=== PATIENT | female | born 1940 | race Caucasian/White ===

== ENCOUNTER 2020-07-26 18:45 | Inpatient (IN) ==
[2020-07-26] MEDS ORDERED: KETOROLAC 30 MG/1 ML VIAL IV ONE (21:37)
[2020-07-26] MEDS ORDERED: dilTIAZem Drip 125 MG/125 ML PREMIX IV SCH (22:00)
[2020-07-26] MEDS ORDERED: ONDANSETRON 4 MG/2 ML VIAL IV PRN (22:06)
[2020-07-26] MEDS ORDERED: DEXTROSE 50% 25 GM/50 ML VIAL IV PRN (22:06)
[2020-07-26] MEDS ORDERED: GLUCAGON 1 MG VIAL IM PRN (22:06)
[2020-07-26 22:09] LABS: Basophils % 0.2 % (0.0-0.8); Eosinophils % 0.1 % (0.00-10.9); Hematocrit 36.3 VOL% (35.7-47.0); Immature Granulocytes % 1.4 %; Immature Granulocytes Absolute 0.19 #; Lymphocytes # 0.9 10*3/uL (1.4-4.0); Lymphocytes % 6.6 % (21.3-54.2); Mean Corpuscular HGB Conc 33.1 GM/DL (32-36); Mean Platelet Volume 10.5 FL (9.6-12.0); Neutrophils % 79.7 % (38.7-73.9); Platelet Count 289 T/CUMM (130-400); Red Blood Count 4.08 MC/CUMM (3.8-5.5); Red Cell Distribution Width 12.6 % (9.3-17.3); White Blood Count 13.6 T/CUMM (4-12)
[2020-07-26 22:14] LABS: Bilirubin,Urine Negative (Negative); Blood, Urine Moderate mg/dL (Negative); Glucose,Urine (UA) Negative (Negative); Hyaline Casts,Urine 6 /LPF (0-3); Ketones,Urine Negative (Negative); Mucus,Urine Occasional /LPF (Occasional); Nitrite,Urine Negative (Negative); Protein,Urine 30 MG/DL; RBC,Urine 1 /HPF (0-4); Squamous Epithelial Cell,Urine Occasional /HPF (0-10); Urine Appearance CLEAR (Clear); Urine Color Yellow (Yellow); Urine Specific Gravity 1.013 (1.001-1.035); WBC,Urine 2 /HPF (0-6)
[2020-07-26] MEDS ORDERED: AMIODARONE 150 MG/3 ML VIAL ONE (22:22)
[2020-07-26] MEDS ORDERED: AMIODARONE INJ 150 MG in DEXTROSE 5% 100 ML IV ONE (22:30)
[2020-07-26] MEDS ORDERED: SODIUM CHLORIDE 0.9% 500 ML IV ONE (22:30)
[2020-07-26 22:36] LABS: Alanine Aminotransferase 36 U/L (13-56); Albumin 2.4 G/DL (3.4-5.0); Alkaline Phosphatase 118 U/L (45-117); Aspartate Amino Transferase 44 U/L (0-37); Blood Urea Nitrogen 20 MG/DL (7-18); Calcium 8.3 MG/DL (8.5-10.1); Estimated Glom Filtration Rate 42 ML/MIN; Glucose 123 MG/DL (74-106); Osmolality,Calculated 256.4 MOS/KG (273-304); Total Protein 6.6 G/DL (6.4-8.3); Troponin I 0.119 NG/ML (0.00-0.045)
[2020-07-26] MEDS ORDERED: PHENYLEPHRINE DRIP 40 MG/250 ML PREMIX IV ONE (23:21)
[2020-07-26] MEDS ORDERED: PHENYLEPHRINE DRIP 40 MG/250 ML PREMIX IV PRN (23:21)
[2020-07-27] MEDS: cefTRIAXone 1,000 MG in SYRINGE 1 EACH IV SCH ×2 (00:10→22:51)
[2020-07-27] MEDS: AZITHROMYCIN INJ 500 MG in SODIUM CHLORIDE 0.9% 250 ML IV SCH ×2 (00:10→22:52)
[2020-07-27 01:44] LABS: Basophils # 0.1 10*3/uL (0.0-0.2); Basophils % 0.3 % (0.0-0.8); Eosinophils % 0.1 % (0.00-10.9); Hematocrit 36.2 VOL% (35.7-47.0); Hemoglobin 11.9 GM/DL (12.0-16.0); Immature Granulocytes % 1.7 %; Immature Granulocytes Absolute 0.25 #; Lymphocytes % 7.1 % (21.3-54.2); Mean Corpuscular HGB Conc 32.9 GM/DL (32-36); Mean Corpuscular Volume 89.8 FL (87-102); Mean Platelet Volume 10.1 FL (9.6-12.0); Monocytes % 10.2 % (1.7-12.7); NRBC # 0.02 10*3/uL; Neutrophils % 80.6 % (38.7-73.9); Platelet Count 298 T/CUMM (130-400); Red Blood Count 4.03 MC/CUMM (3.8-5.5); Red Cell Distribution Width 12.5 % (9.3-17.3); White Blood Count 14.7 T/CUMM (4-12)
[2020-07-27 02:11] LABS: Calcium 8.4 MG/DL (8.5-10.1); Osmolality,Calculated 259.2 MOS/KG (273-304); Risk Ratio 4.05; Thyroid Stimulating Hormone 2.82 uIU/ml (0.358-3.74); VLDL CHOLESTEROL 16.2 MG/DL
[2020-07-27] MEDS: PANTOPRAZOLE 40 MG VIAL IV SCH (08:16)
[2020-07-27] MEDS: AMIODARONE 200 MG TABLET PO SCH ×2 (11:07→20:34)
[2020-07-27] MEDS: APIXABAN 2.5 MG TABLET PO SCH (20:34)
[2020-07-28 03:37] LABS: Basophils % 0.4 % (0.0-0.8); Eosinophils # 0.1 10*3/uL (0.0-0.87); Eosinophils % 1.2 % (0.00-10.9); Hematocrit 33.4 VOL% (35.7-47.0); Hemoglobin 10.8 GM/DL (12.0-16.0); Immature Granulocytes % 1.4 %; Immature Granulocytes Absolute 0.11 #; Lymphocytes # 1.2 10*3/uL (1.4-4.0); Lymphocytes % 15.4 % (21.3-54.2); Mean Corpuscular HGB Conc 32.3 GM/DL (32-36); Mean Corpuscular Volume 89.8 FL (87-102); Mean Platelet Volume 10.4 FL (9.6-12.0); Neutrophils % 65.6 % (38.7-73.9); Platelet Count 234 T/CUMM (130-400); Red Blood Count 3.72 MC/CUMM (3.8-5.5); Red Cell Distribution Width 12.7 % (9.3-17.3)
[2020-07-28 03:58] LABS: Calcium 8.3 MG/DL (8.5-10.1); Osmolality,Calculated 267.4 MOS/KG (273-304)
[2020-07-28 04:03] LABS: Band Neutrophils 1 % (0-10); Eosinophils 3 % (0-10); Hypochromasia 1+; Lymphocytes 15 % (20-55); Microcytosis Slight; Ovalocytes Slight; Platelet Estimate Adequate; Segmented Neutrophils 67 % (50-85); Total Cells Counted 100
[2020-07-28] MEDS: ATORVASTATIN 40 MG TABLET PO SCH (08:15)
[2020-07-28] MEDS: ASPIRIN EC 81 MG TABLET PO SCH (08:15)
[2020-07-28] MEDS: PANTOPRAZOLE 40 MG VIAL IV SCH (08:15)
[2020-07-28] MEDS: AMIODARONE 200 MG TABLET PO SCH ×2 (08:15→21:29)
[2020-07-28] MEDS: APIXABAN 2.5 MG TABLET PO SCH (08:15)
[2020-07-28 08:25] LABS: INR 1.1; PT Patient Result 11.4 SECS (9.8-11.9)
[2020-07-28] MEDS: FUROSEMIDE 20 MG TABLET PO SCH (12:52)
[2020-07-28] MEDS ORDERED: MAGNESIUM CITRATE 300 ML BOTTLE PO PRN (18:03)
[2020-07-28] MEDS: ACETAMINOPHEN 325 MG TABLET PO PRN (21:28)
[2020-07-28] MEDS: POLYETHYLENE GLYCOL POWDER 17 GM PACK PO SCH (21:28)
[2020-07-28] MEDS: DOCUSATE SODIUM 100 MG CAPSULE PO SCH (21:29)
[2020-07-28] MEDS: SENNA 8.6 MG TABLET PO SCH (21:29)
[2020-07-29] MEDS: cefTRIAXone 1,000 MG in SYRINGE 1 EACH IV SCH ×2 (00:02→22:10)
[2020-07-29] MEDS: AZITHROMYCIN INJ 500 MG in SODIUM CHLORIDE 0.9% 250 ML IV SCH ×2 (00:03→22:12)
[2020-07-29 06:29] LABS: Basophils # 0.1 10*3/uL (0.0-0.2); Basophils % 0.3 % (0.0-0.8); Eosinophils % 0.1 % (0.00-10.9); Hematocrit 41.3 VOL% (35.7-47.0); Hemoglobin 13.4 GM/DL (12.0-16.0); Immature Granulocytes % 0.8 %; Immature Granulocytes Absolute 0.14 #; Lymphocytes # 0.7 10*3/uL (1.4-4.0); Lymphocytes % 3.9 % (21.3-54.2); Mean Corpuscular HGB Conc 32.4 GM/DL (32-36); Mean Corpuscular Volume 90.8 FL (87-102); Mean Platelet Volume 10.1 FL (9.6-12.0); Monocytes % 11.1 % (1.7-12.7); Neutrophils % 83.8 % (38.7-73.9); Platelet Count 363 T/CUMM (130-400); Red Blood Count 4.55 MC/CUMM (3.8-5.5); Red Cell Distribution Width 12.9 % (9.3-17.3); White Blood Count 18.2 T/CUMM (4-12)
[2020-07-29 06:46] LABS: Calcium 8.8 MG/DL (8.5-10.1)
[2020-07-29 06:53] LABS: % Iron Saturation 6.2 % (18-50); Ferritin 140.6 ng/ml (8-252)
[2020-07-29 06:55] LABS: Band Neutrophils 1 % (0-10); Hypochromasia 1+; Lymphocytes 6 % (20-55); Microcytosis Slight; Nucleated Red Blood Cells 1 (0-5); Platelet Estimate Adequate; Segmented Neutrophils 88 % (50-85); Total Cells Counted 100
[2020-07-29 07:12] LABS: Folate 7.6 NG/ML (5.4-24.0); Vitamin B12 448 PG/ML (211-911)
[2020-07-29 07:50] LABS: Sedimentation Rate-Westergren 42 MM/HR (0-30)
[2020-07-29] MEDS: POLYETHYLENE GLYCOL POWDER 17 GM PACK PO SCH ×2 (08:43→20:27)
[2020-07-29] MEDS: ACETAMINOPHEN 325 MG TABLET PO PRN ×2 (08:43→18:44)
[2020-07-29] MEDS: ATORVASTATIN 40 MG TABLET PO SCH (08:43)
[2020-07-29] MEDS: FUROSEMIDE 20 MG TABLET PO SCH (08:44)
[2020-07-29] MEDS: PANTOPRAZOLE 40 MG VIAL IV SCH (08:44)
[2020-07-29] MEDS: CHOLECALCIFEROL 1,000 UNIT TABLET PO SCH (08:44)
[2020-07-29] MEDS: DOCUSATE SODIUM 100 MG CAPSULE PO SCH ×2 (08:44→20:27)
[2020-07-29] MEDS: AMIODARONE 200 MG TABLET PO SCH (08:44)
[2020-07-29] MEDS ORDERED: MAGNESIUM HYDROXIDE SUSP 30 ML UDCUP PO ONE (08:54)
[2020-07-29] MEDS: ASPIRIN EC 81 MG TABLET PO SCH (09:38)
[2020-07-29 10:35] LABS: Troponin I 0.031 NG/ML (0.00-0.045)
[2020-07-29] MEDS ORDERED: diphenhydrAMINE CAP 25 MG CAPSULE PO ONE (14:19)
[2020-07-29] MEDS ORDERED: DIAZEPAM 5 MG TABLET PO ONE (14:19)
[2020-07-29] MEDS ORDERED: AMIODARONE INJ 150 MG in DEXTROSE 5% 100 ML IV ONE (16:07)
[2020-07-29 16:25] LABS: Total Protein,Body Fluid 3.4 G/DL
[2020-07-29] MEDS: AMIODARONE INJ 450 MG in DEXTROSE 5% 241 ML IV SCH (16:40)
[2020-07-29 16:47] LABS: Lymphocytes,Pleural Fluid 24 %; Monocytes,Pleural Fluid 2 %; Neutrophils,Pleural Fluid 74 %; RBC,Pleural Fluid 145 T/CUMM
[2020-07-29] MEDS: SENNA 8.6 MG TABLET PO SCH (20:28)
[2020-07-29] MEDS: diphenhydrAMINE CAP 25 MG CAPSULE PO SCH (20:52)
[2020-07-30 05:35] LABS: Basophils # 0.1 10*3/uL (0.0-0.2); Basophils % 0.3 % (0.0-0.8); Eosinophils % 0.2 % (0.00-10.9); Hematocrit 40.1 VOL% (35.7-47.0); Immature Granulocytes % 1.3 %; Immature Granulocytes Absolute 0.24 #; Lymphocytes # 1.3 10*3/uL (1.4-4.0); Mean Corpuscular HGB Conc 32.4 GM/DL (32-36); Mean Corpuscular Volume 89.1 FL (87-102); Mean Platelet Volume 10.3 FL (9.6-12.0); Monocytes % 9.6 % (1.7-12.7); Neutrophils % 81.6 % (38.7-73.9); Platelet Count 309 T/CUMM (130-400); Red Cell Distribution Width 12.8 % (9.3-17.3); White Blood Count 18.2 T/CUMM (4-12)
[2020-07-30 05:51] LABS: Albumin 2.3 G/DL (3.4-5.0); Bilirubin,Total 0.8 MG/DL (0.2-1.0); Calcium 8.9 MG/DL (8.5-10.1); Osmolality,Calculated 269.2 MOS/KG (273-304); Total Protein 6.7 G/DL (6.4-8.3)
[2020-07-30] MEDS ORDERED: DIAZEPAM 5 MG TABLET PO ONE (08:00)
[2020-07-30] MEDS ORDERED: diphenhydrAMINE CAP 25 MG CAPSULE PO ONE (08:00)
[2020-07-30] MEDS ORDERED: SODIUM CHLORIDE 0.9% 1,000 ML IV SCH (09:00)
[2020-07-30 09:08] LABS: Hemoglobin A1 (Alkaline) 97.1 % (96.5-98.5); Hemoglobin A2 (Alkaline) 2.9 % (1.5-3.5)
[2020-07-30] MEDS: AMIODARONE INJ 450 MG in DEXTROSE 5% 241 ML IV SCH (09:14)
[2020-07-30] MEDS: FUROSEMIDE 20 MG TABLET PO SCH (09:32)
[2020-07-30] MEDS: CHOLECALCIFEROL 1,000 UNIT TABLET PO SCH (09:32)
[2020-07-30] MEDS: ASPIRIN EC 81 MG TABLET PO SCH (09:32)
[2020-07-30] MEDS: DOCUSATE SODIUM 100 MG CAPSULE PO SCH (09:33)
[2020-07-30] MEDS: AMIODARONE 200 MG TABLET PO SCH (09:33)
[2020-07-30] MEDS: PANTOPRAZOLE 40 MG VIAL IV SCH (09:33)
[2020-07-30] MEDS: ATORVASTATIN 40 MG TABLET PO SCH (09:33)
[2020-07-30] MEDS: POLYETHYLENE GLYCOL POWDER 17 GM PACK PO SCH (09:33)
[2020-07-30] MEDS: APIXABAN 2.5 MG TABLET PO SCH (09:39)
[2020-07-30] MEDS ORDERED: LIDOCAINE 1% 20 ML VIAL ONE (12:45)
[2020-07-30] MEDS ORDERED: HEPARIN/NACL 0.9% 2 UNITS/ML 1,500 ML IV ONE (12:45)
[2020-07-30] MEDS ORDERED: AMIODARONE INJ 150 MG in DEXTROSE 5% 100 ML IV ONE (12:54)
[2020-07-30] MEDS ORDERED: AMIODARONE INJ 450 MG in DEXTROSE 5% 241 ML IV SCH (13:00)
[2020-07-30] MEDS ORDERED: NOREPINEPHRINE 4 MG/4 ML VIAL IV ONE (13:55)
[2020-07-30] MEDS ORDERED: SODIUM CHLORIDE 0.9% 1,000 ML IV ONE (14:56)
[2020-07-30] MEDS ORDERED: PHENYLEPHRINE 10 MG/1 ML VIAL IV ONE (14:56)
[2020-07-30] MEDS ORDERED: LIDOCAINE 2% 5 ML VIAL ONE (14:56)
[2020-07-30] MEDS ORDERED: flumazeniL 0.5 MG/5 ML VIAL IV ONE (15:07)
[2020-07-31] MEDS: guaiFENesin/DM ER 600-30 MG TABLET PO PRN ×2 (00:28→23:30)
[2020-07-31] MEDS: AMIODARONE 200 MG TABLET PO SCH ×3 (00:28→23:30)
[2020-07-31] MEDS: cefTRIAXone 1,000 MG in SYRINGE 1 EACH IV SCH ×2 (00:28→23:30)
[2020-07-31] MEDS: SENNA 8.6 MG TABLET PO SCH ×2 (00:28→23:30)
[2020-07-31] MEDS: DOCUSATE SODIUM 100 MG CAPSULE PO SCH ×3 (00:29→23:30)
[2020-07-31] MEDS: POLYETHYLENE GLYCOL POWDER 17 GM PACK PO SCH ×3 (00:29→23:36)
[2020-07-31] MEDS: APIXABAN 2.5 MG TABLET PO SCH ×2 (00:29→10:02)
[2020-07-31] MEDS: AZITHROMYCIN INJ 500 MG in SODIUM CHLORIDE 0.9% 250 ML IV SCH (00:31)
[2020-07-31] MEDS: diphenhydrAMINE CAP 25 MG CAPSULE PO SCH ×2 (00:35→23:30)
[2020-07-31 06:38] LABS: Basophils # 0.1 10*3/uL (0.0-0.2); Basophils % 0.4 % (0.0-0.8); Eosinophils % 0.3 % (0.00-10.9); Hematocrit 36.5 VOL% (35.7-47.0); Hemoglobin 11.4 GM/DL (12.0-16.0); Immature Granulocytes % 1.7 %; Immature Granulocytes Absolute 0.22 #; Lymphocytes # 1.1 10*3/uL (1.4-4.0); Lymphocytes % 8.2 % (21.3-54.2); Mean Corpuscular HGB Conc 31.2 GM/DL (32-36); Mean Corpuscular Volume 92.6 FL (87-102); Mean Platelet Volume 9.3 FL (9.6-12.0); Monocytes % 11.8 % (1.7-12.7); Neutrophils % 77.6 % (38.7-73.9); Platelet Count 318 T/CUMM (130-400); Red Blood Count 3.94 MC/CUMM (3.8-5.5); Red Cell Distribution Width 13.1 % (9.3-17.3); White Blood Count 12.9 T/CUMM (4-12)
[2020-07-31 06:48] LABS: Alanine Aminotransferase 24 U/L (13-56); Alkaline Phosphatase 81 U/L (45-117); Aspartate Amino Transferase 24 U/L (0-37); Bilirubin,Total < 0.39 MG/DL (0.2-1.0); Blood Urea Nitrogen 19 MG/DL (7-18); Calcium 8.4 MG/DL (8.5-10.1); Estimated Glom Filtration Rate 48 ML/MIN; Glucose 76 MG/DL (74-106); Osmolality,Calculated 275.7 MOS/KG (273-304)
[2020-07-31] MEDS: AMIODARONE INJ 450 MG in DEXTROSE 5% 241 ML IV SCH ×3 (09:32→20:06)
[2020-07-31] MEDS: ASPIRIN EC 81 MG TABLET PO SCH (09:33)
[2020-07-31] MEDS: ATORVASTATIN 40 MG TABLET PO SCH (09:33)
[2020-07-31] MEDS: CHOLECALCIFEROL 1,000 UNIT TABLET PO SCH (09:33)
[2020-07-31] MEDS: FUROSEMIDE 20 MG TABLET PO SCH (09:33)
[2020-07-31] MEDS: PANTOPRAZOLE 40 MG VIAL IV SCH (09:37)
[2020-07-31] MEDS ORDERED: AMIODARONE INJ 150 MG in DEXTROSE 5% 100 ML IV ONE (11:14)
[2020-07-31] MEDS ORDERED: AMIODARONE INJ 450 MG in DEXTROSE 5% 241 ML IV SCH (11:30)
[2020-07-31] MEDS: ACETAMINOPHEN 325 MG TABLET PO PRN (11:55)
[2020-07-31] MEDS: ENOXAPARIN 60 MG/0.6 ML SYRINGE SUBCUT SCH ×2 (14:35→23:31)
[2020-07-31 18:05] LABS: Soluble Transf Receptor (sTfR) 3.9 mg/L (1.8 - 4.6)
[2020-08-01] MEDS ORDERED: DILTIAZEM 25 MG/5 ML VIAL IV ONE ×2 (05:39→10:49)
[2020-08-01] MEDS ORDERED: DIGOXIN 0.25 MG TABLET PO ONE ×2 (05:40→16:00)
[2020-08-01] MEDS: AMIODARONE 200 MG TABLET PO SCH ×3 (05:51→21:30)
[2020-08-01 06:31] LABS: Calcium 8.2 MG/DL (8.5-10.1); Osmolality,Calculated 272.1 MOS/KG (273-304)
[2020-08-01 06:34] LABS: Basophils # 0.1 10*3/uL (0.0-0.2); Basophils % 0.4 % (0.0-0.8); Eosinophils # 0.1 10*3/uL (0.0-0.87); Eosinophils % 0.4 % (0.00-10.9); Hematocrit 34.4 VOL% (35.7-47.0); Hemoglobin 10.9 GM/DL (12.0-16.0); Immature Granulocytes % 3.7 %; Immature Granulocytes Absolute 0.42 #; Lymphocytes # 1.1 10*3/uL (1.4-4.0); Lymphocytes % 9.9 % (21.3-54.2); Mean Corpuscular HGB Conc 31.7 GM/DL (32-36); Mean Corpuscular Volume 92.7 FL (87-102); Mean Platelet Volume 10.1 FL (9.6-12.0); Monocytes % 10.8 % (1.7-12.7); Neutrophils % 74.8 % (38.7-73.9); Platelet Count 345 T/CUMM (130-400); Red Blood Count 3.71 MC/CUMM (3.8-5.5); White Blood Count 11.4 T/CUMM (4-12)
[2020-08-01] MEDS: FUROSEMIDE 20 MG TABLET PO SCH (09:02)
[2020-08-01] MEDS: CHOLECALCIFEROL 1,000 UNIT TABLET PO SCH (09:02)
[2020-08-01] MEDS: DOCUSATE SODIUM 100 MG CAPSULE PO SCH ×2 (09:02→21:28)
[2020-08-01] MEDS: ATORVASTATIN 40 MG TABLET PO SCH (09:02)
[2020-08-01] MEDS: ASPIRIN EC 81 MG TABLET PO SCH (09:02)
[2020-08-01] MEDS: AMIODARONE INJ 450 MG in DEXTROSE 5% 241 ML IV SCH (09:03)
[2020-08-01] MEDS: POLYETHYLENE GLYCOL POWDER 17 GM PACK PO SCH ×3 (09:03→21:36)
[2020-08-01] MEDS: ENOXAPARIN 60 MG/0.6 ML SYRINGE SUBCUT SCH ×2 (09:07→21:31)
[2020-08-01] MEDS: PANTOPRAZOLE 40 MG VIAL IV SCH (09:08)
[2020-08-01] MEDS: SENNA 8.6 MG TABLET PO SCH (21:28)
[2020-08-01] MEDS: diphenhydrAMINE CAP 25 MG CAPSULE PO SCH (21:28)
[2020-08-01] MEDS: cefTRIAXone 1,000 MG in SYRINGE 1 EACH IV SCH (21:31)
[2020-08-02 06:14] LABS: Basophils # 0.1 10*3/uL (0.0-0.2); Basophils % 0.9 % (0.0-0.8); Eosinophils # 0.1 10*3/uL (0.0-0.87); Eosinophils % 0.5 % (0.00-10.9); Hematocrit 35.4 VOL% (35.7-47.0); Hemoglobin 11.2 GM/DL (12.0-16.0); Immature Granulocytes % 4.4 %; Lymphocytes # 1.1 10*3/uL (1.4-4.0); Lymphocytes % 11.9 % (21.3-54.2); Mean Corpuscular HGB Conc 31.6 GM/DL (32-36); Mean Corpuscular Volume 90.8 FL (87-102); Mean Platelet Volume 9.8 FL (9.6-12.0); Monocytes % 11.6 % (1.7-12.7); Neutrophils % 70.7 % (38.7-73.9); Platelet Count 328 T/CUMM (130-400); White Blood Count 9.2 T/CUMM (4-12)
[2020-08-02 06:27] LABS: Calcium 8.5 MG/DL (8.5-10.1); Osmolality,Calculated 273.8 MOS/KG (273-304)
[2020-08-02] MEDS: AMIODARONE INJ 450 MG in DEXTROSE 5% 241 ML IV SCH ×2 (06:29→15:59)
[2020-08-02] MEDS ORDERED: DILTIAZEM 25 MG/5 ML VIAL IV ONE (09:39)
[2020-08-02] MEDS: AMIODARONE 200 MG TABLET PO SCH ×2 (10:35→20:40)
[2020-08-02] MEDS: FUROSEMIDE 20 MG TABLET PO SCH (10:35)
[2020-08-02] MEDS: CHOLECALCIFEROL 1,000 UNIT TABLET PO SCH (10:35)
[2020-08-02] MEDS: DOCUSATE SODIUM 100 MG CAPSULE PO SCH ×2 (10:35→20:40)
[2020-08-02] MEDS: ATORVASTATIN 40 MG TABLET PO SCH (10:35)
[2020-08-02] MEDS: ASPIRIN EC 81 MG TABLET PO SCH (10:35)
[2020-08-02] MEDS: POLYETHYLENE GLYCOL POWDER 17 GM PACK PO SCH ×2 (10:36→20:42)
[2020-08-02] MEDS: ENOXAPARIN 60 MG/0.6 ML SYRINGE SUBCUT SCH ×2 (10:36→20:42)
[2020-08-02] MEDS: PANTOPRAZOLE 40 MG VIAL IV SCH (10:38)
[2020-08-02] MEDS: SENNA 8.6 MG TABLET PO SCH (20:40)
[2020-08-02] MEDS: diphenhydrAMINE CAP 25 MG CAPSULE PO SCH (20:41)
[2020-08-02] MEDS: DIGOXIN 0.125 MG TABLET PO SCH (20:41)
[2020-08-02] MEDS: cefTRIAXone 1,000 MG in SYRINGE 1 EACH IV SCH (21:30)
[2020-08-03 06:23] LABS: Basophils # 0.1 10*3/uL (0.0-0.2); Basophils % 0.8 % (0.0-0.8); Eosinophils # 0.1 10*3/uL (0.0-0.87); Eosinophils % 0.6 % (0.00-10.9); Hematocrit 34.8 VOL% (35.7-47.0); Hemoglobin 10.9 GM/DL (12.0-16.0); Immature Granulocytes % 4.9 %; Immature Granulocytes Absolute 0.49 #; Lymphocytes # 1.2 10*3/uL (1.4-4.0); Lymphocytes % 11.9 % (21.3-54.2); Mean Corpuscular HGB Conc 31.3 GM/DL (32-36); Mean Corpuscular Volume 92.6 FL (87-102); Mean Platelet Volume 9.3 FL (9.6-12.0); Monocytes % 11.7 % (1.7-12.7); Neutrophils % 70.1 % (38.7-73.9); Platelet Count 325 T/CUMM (130-400); Red Blood Count 3.76 MC/CUMM (3.8-5.5); White Blood Count 10.1 T/CUMM (4-12)
[2020-08-03 06:36] LABS: Calcium 8.3 MG/DL (8.5-10.1); Osmolality,Calculated 274.8 MOS/KG (273-304)
[2020-08-03] MEDS: AMIODARONE INJ 450 MG in DEXTROSE 5% 241 ML IV SCH (07:19)
[2020-08-03] MEDS ORDERED: propofoL 200 MG/20 ML VIAL IV ONE (08:45)
[2020-08-03] MEDS ORDERED: LIDOCAINE 2% 5 ML VIAL ONE ×2 (08:45→14:33)
[2020-08-03] MEDS ORDERED: ETOMIDATE 20 MG/10 ML VIAL IV ONE (08:46)
[2020-08-03] MEDS: ENOXAPARIN 60 MG/0.6 ML SYRINGE SUBCUT SCH ×2 (09:20→22:13)
[2020-08-03] MEDS: CHOLECALCIFEROL 1,000 UNIT TABLET PO SCH (09:20)
[2020-08-03] MEDS: PANTOPRAZOLE 40 MG VIAL IV SCH (09:20)
[2020-08-03] MEDS: DIGOXIN 0.125 MG TABLET PO SCH ×2 (09:21→22:14)
[2020-08-03] MEDS: ASPIRIN EC 81 MG TABLET PO SCH (09:21)
[2020-08-03] MEDS: AMIODARONE 200 MG TABLET PO SCH ×3 (09:21→22:14)
[2020-08-03] MEDS: DOCUSATE SODIUM 100 MG CAPSULE PO SCH ×2 (09:21→22:14)
[2020-08-03] MEDS: FUROSEMIDE 20 MG TABLET PO SCH (09:21)
[2020-08-03] MEDS: ATORVASTATIN 40 MG TABLET PO SCH (09:21)
[2020-08-03] MEDS: POLYETHYLENE GLYCOL POWDER 17 GM PACK PO SCH ×2 (09:21→22:14)
[2020-08-03] MEDS ORDERED: HEPARIN/NACL 0.9% 2 UNITS/ML 1,000 ML IV ONE (10:22)
[2020-08-03] MEDS ORDERED: LIDOCAINE 1% 20 ML VIAL ONE (10:22)
[2020-08-03] MEDS ORDERED: HEPARIN/NACL 0.9% 2 UNITS/ML 500 ML IV ONE (14:29)
[2020-08-03] MEDS ORDERED: ETOMIDATE 40 MG/20 ML VIAL IV ONE (14:34)
[2020-08-03] MEDS ORDERED: GLYCOPYRROLATE 0.4 MG/2 ML VIAL ONE (14:34)
[2020-08-03] MEDS ORDERED: SODIUM CHLORIDE 0.9% 1,000 ML IV SCH (15:30)
[2020-08-03] MEDS: SENNA 8.6 MG TABLET PO SCH (22:14)
[2020-08-03] MEDS: diphenhydrAMINE CAP 25 MG CAPSULE PO SCH (22:14)
[2020-08-04] MEDS: POLYETHYLENE GLYCOL POWDER 17 GM PACK PO SCH ×3 (09:05→22:32)
[2020-08-04] MEDS: ENOXAPARIN 60 MG/0.6 ML SYRINGE SUBCUT SCH ×2 (09:05→22:32)
[2020-08-04] MEDS: FUROSEMIDE 20 MG TABLET PO SCH (09:07)
[2020-08-04] MEDS: DIGOXIN 0.125 MG TABLET PO SCH ×2 (09:07→22:30)
[2020-08-04] MEDS: DOCUSATE SODIUM 100 MG CAPSULE PO SCH ×2 (09:07→22:31)
[2020-08-04] MEDS: AMIODARONE 200 MG TABLET PO SCH ×2 (09:07→22:30)
[2020-08-04] MEDS: ASPIRIN EC 81 MG TABLET PO SCH (09:07)
[2020-08-04] MEDS: CHOLECALCIFEROL 1,000 UNIT TABLET PO SCH (09:07)
[2020-08-04] MEDS: PANTOPRAZOLE 40 MG VIAL IV SCH (09:07)
[2020-08-04] MEDS ORDERED: ATORVASTATIN 20 MG TABLET PO ONE (10:30)
[2020-08-04] MEDS: ATORVASTATIN 40 MG TABLET PO SCH (11:19)
[2020-08-04] MEDS: ACETAMINOPHEN 325 MG TABLET PO PRN (19:35)
[2020-08-04] MEDS: diphenhydrAMINE CAP 25 MG CAPSULE PO SCH (22:30)
[2020-08-04] MEDS: SENNA 8.6 MG TABLET PO SCH (22:31)
[2020-08-05 05:39] LABS: Basophils # 0.1 10*3/uL (0.0-0.2); Basophils % 0.9 % (0.0-0.8); Eosinophils # 0.1 10*3/uL (0.0-0.87); Eosinophils % 0.9 % (0.00-10.9); Hematocrit 34.4 VOL% (35.7-47.0); Hemoglobin 10.8 GM/DL (12.0-16.0); Immature Granulocytes % 6.2 %; Immature Granulocytes Absolute 0.64 #; Lymphocytes # 1.1 10*3/uL (1.4-4.0); Lymphocytes % 10.8 % (21.3-54.2); Mean Corpuscular HGB Conc 31.4 GM/DL (32-36); Mean Corpuscular Volume 91.7 FL (87-102); Mean Platelet Volume 9.7 FL (9.6-12.0); Monocytes % 8.5 % (1.7-12.7); Neutrophils % 72.7 % (38.7-73.9); Platelet Count 261 T/CUMM (130-400); Red Blood Count 3.75 MC/CUMM (3.8-5.5); White Blood Count 10.3 T/CUMM (4-12)
[2020-08-05 06:14] LABS: Calcium 8.1 MG/DL (8.5-10.1); Osmolality,Calculated 269.1 MOS/KG (273-304)
[2020-08-05 07:18] LABS: Band Neutrophils 4 % (0-10); Eosinophils 1 % (0-10); Lymphocytes 11 % (20-55); Metamyelocytes 3 %; Segmented Neutrophils 73 % (50-85); Total Cells Counted 100
[2020-08-05 07:19] LABS: Anisocytosis 1+; Macrocytosis 1+; Platelet Estimate Normal
[2020-08-05] MEDS: AMIODARONE 200 MG TABLET PO SCH ×2 (09:38→21:42)
[2020-08-05] MEDS: PANTOPRAZOLE 40 MG VIAL IV SCH (09:39)
[2020-08-05] MEDS: ASPIRIN EC 81 MG TABLET PO SCH (09:39)
[2020-08-05] MEDS: ATORVASTATIN 40 MG TABLET PO SCH (09:39)
[2020-08-05] MEDS: DOCUSATE SODIUM 100 MG CAPSULE PO SCH ×2 (09:39→21:43)
[2020-08-05] MEDS: DIGOXIN 0.125 MG TABLET PO SCH ×2 (09:39→21:42)
[2020-08-05] MEDS: ENOXAPARIN 60 MG/0.6 ML SYRINGE SUBCUT SCH ×2 (09:39→10:33)
[2020-08-05] MEDS: CHOLECALCIFEROL 1,000 UNIT TABLET PO SCH (09:39)
[2020-08-05] MEDS: FUROSEMIDE 20 MG TABLET PO SCH (09:39)
[2020-08-05] MEDS: POLYETHYLENE GLYCOL POWDER 17 GM PACK PO SCH ×2 (09:40→21:42)
[2020-08-05] MEDS: SENNA 8.6 MG TABLET PO SCH (21:43)
[2020-08-05] MEDS: diphenhydrAMINE CAP 25 MG CAPSULE PO SCH (21:43)
[2020-08-06 06:14] LABS: Calcium 8.3 MG/DL (8.5-10.1); Osmolality,Calculated 273.5 MOS/KG (273-304)
[2020-08-06 06:17] LABS: Bilirubin,Total 1.1 MG/DL (0.2-1.0); Calcium 8.3 MG/DL (8.5-10.1); Osmolality,Calculated 274.5 MOS/KG (273-304); Total Protein 5.7 G/DL (6.4-8.3)
[2020-08-06 07:19] LABS: Basophils # 0.1 10*3/uL (0.0-0.2); Basophils % 0.6 % (0.0-0.8); Eosinophils # 0.1 10*3/uL (0.0-0.87); Eosinophils % 0.8 % (0.00-10.9); Hemoglobin 10.9 GM/DL (12.0-16.0); Immature Granulocytes % 4.4 %; Immature Granulocytes Absolute 0.49 #; Lymphocytes % 9.1 % (21.3-54.2); Mean Corpuscular HGB Conc 31.1 GM/DL (32-36); Mean Corpuscular Volume 93.1 FL (87-102); Mean Platelet Volume 9.8 FL (9.6-12.0); Monocytes % 7.4 % (1.7-12.7); Neutrophils % 77.7 % (38.7-73.9); Platelet Count 310 T/CUMM (130-400); Red Blood Count 3.76 MC/CUMM (3.8-5.5); Red Cell Distribution Width 13.2 % (9.3-17.3); White Blood Count 11.1 T/CUMM (4-12)
[2020-08-06] MEDS ORDERED: SODIUM CHLORIDE 0.9% 1,000 ML IV SCH (07:30)
[2020-08-06 08:29] LABS: ABG Base Excess 11.5 MMOL/L (-2.5-2.5); ABG HCO3 35.3 MMOL/L (20-26); ABG Oxygen Saturation 96.7 % (95-100); ABG PCO2 61.4 MM HG (35-48); ABG PH 7.408 (7.35-7.45); ABG PO2 85.5 MM HG (80-95); ABG TCO2 34.7 MMOL/L (23-27)
[2020-08-06] MEDS ORDERED: CHLORHEXIDINE 4% SOLN 118 ML BOTTLE TOP SCH (09:00)
[2020-08-06] MEDS: POLYETHYLENE GLYCOL POWDER 17 GM PACK PO SCH ×2 (09:55→20:28)
[2020-08-06] MEDS: DIGOXIN 0.125 MG TABLET PO SCH ×2 (09:56→20:27)
[2020-08-06] MEDS: ASPIRIN EC 81 MG TABLET PO SCH (09:56)
[2020-08-06] MEDS: AMIODARONE 200 MG TABLET PO SCH ×2 (09:56→20:28)
[2020-08-06] MEDS: ATORVASTATIN 40 MG TABLET PO SCH (09:56)
[2020-08-06] MEDS: FUROSEMIDE 20 MG TABLET PO SCH (09:56)
[2020-08-06] MEDS: DOCUSATE SODIUM 100 MG CAPSULE PO SCH ×2 (09:57→20:27)
[2020-08-06] MEDS: CHOLECALCIFEROL 1,000 UNIT TABLET PO SCH (09:57)
[2020-08-06] MEDS: PANTOPRAZOLE 40 MG VIAL IV SCH (09:58)
[2020-08-06] MEDS: CHLORHEXIDINE 0.12% ORAL RINSE 60 ML BOTTLE SWISH/SPIT SCH ×2 (10:48→20:28)
[2020-08-06] MEDS: CHLORHEXIDINE 4% SOLN 118 ML BOTTLE TOP SCH ×2 (16:22→20:50)
[2020-08-06] MEDS: diphenhydrAMINE CAP 25 MG CAPSULE PO SCH (20:27)
[2020-08-06] MEDS: SENNA 8.6 MG TABLET PO SCH (20:28)
[2020-08-07] MEDS ORDERED: PAPAVERINE 60 MG/2 ML VIAL ONE (04:21)
[2020-08-07] MEDS ORDERED: VANCOMYCIN 1,000 MG VIAL ONE (04:21)
[2020-08-07] MEDS: CHLORHEXIDINE 4% SOLN 118 ML BOTTLE TOP SCH ×2 (04:31→10:21)
[2020-08-07] MEDS ORDERED: CEFUROXIME INJ 1,500 MG in SYRINGE 1 EACH IV ONE (05:00)
[2020-08-07] MEDS: AMIODARONE 200 MG TABLET PO SCH ×2 (05:54→10:21)
[2020-08-07 05:57] LABS: Basophils # 0.1 10*3/uL (0.0-0.2); Basophils % 0.5 % (0.0-0.8); Eosinophils # 0.1 10*3/uL (0.0-0.87); Eosinophils % 0.6 % (0.00-10.9); Hematocrit 34.8 VOL% (35.7-47.0); Immature Granulocytes % 3.3 %; Immature Granulocytes Absolute 0.36 #; Lymphocytes # 0.8 10*3/uL (1.4-4.0); Lymphocytes % 7.6 % (21.3-54.2); Mean Corpuscular HGB Conc 31.6 GM/DL (32-36); Mean Corpuscular Volume 92.3 FL (87-102); Mean Platelet Volume 8.9 FL (9.6-12.0); Monocytes % 8.3 % (1.7-12.7); Neutrophils % 79.7 % (38.7-73.9); Platelet Count 323 T/CUMM (130-400); Red Blood Count 3.77 MC/CUMM (3.8-5.5); Red Cell Distribution Width 13.2 % (9.3-17.3)
[2020-08-07 06:15] LABS: Calcium 8.3 MG/DL (8.5-10.1); Osmolality,Calculated 274.5 MOS/KG (273-304)
[2020-08-07] MEDS ORDERED: SODIUM CHLORIDE 0.9% 1,000 ML IV SCH (07:00)
[2020-08-07] MEDS ORDERED: ALBUTEROL INHALER 18 GM INH ONE (07:42)
[2020-08-07 07:56] LABS: ABG Base Excess 13.5 MMOL/L (-2.5-2.5); ABG HCO3 37.3 MMOL/L (20-26); ABG PCO2 30.1 MM HG (35-48); ABG TCO2 31.4 MMOL/L (23-27); Glucose Heart Surgery 99 MG/DL (74-106); Hemoglobin Heart Surgery 10.3 G/DL (12.0-16.0); Ionized Calcium Arterial 1.04 MMOL/L (1.21-1.46); PCO2 Patient Temp Arterial 30.1 MMHG; Patient Temperature 37 CELCIUS; Potassium Heart/CVR 3.6 MMOL/L (3.5-5.1); Sodium Heart/CVR 136 MMOL/L (135-145)
[2020-08-07 07:57] LABS: ABG PH 7.671 (7.35-7.45); PH Patient Temp Arterial 7.671
[2020-08-07] MEDS ORDERED: SODIUM BICARBONATE 50 MEQ/50 ML VIAL IV ONE ×2 (08:54→10:48)
[2020-08-07] MEDS ORDERED: EPINEPHrine 1 MG/10 ML SYRINGE ONE (08:55)
[2020-08-07] MEDS ORDERED: PHENYLEPHRINE DRIP 40 MG/250 ML PREMIX IV ONE (08:55)
[2020-08-07] MEDS ORDERED: POTASSIUM CHLORIDE RIDER 100 ML IV ONE (08:55)
[2020-08-07] MEDS ORDERED: CALCIUM CHLORIDE 1,000 MG/10 ML SYRINGE IV ONE (08:55)
[2020-08-07] MEDS ORDERED: ALBUMIN 5% 12.5 GM/250 ML VIAL IV ONE (08:55)
[2020-08-07 09:06] LABS: Hematocrit Heart Surgery 21.4 PERCENT (37-47); Hemoglobin Heart Surgery 6.8 G/DL (12.0-16.0); PCO2 Patient Temp Venous 31.8 MM HG; PH Patient Temp Venous 7.657; PO2 Patient Temp Venous 31.4 MM HG; Potassium Heart/CVR 3.4 MMOL/L (3.5-5.1); VBG Base Excess 13.8 MEQ/L (0-4); VBG HCO3 37.4 MEQ/L (24-28); VBG Oxygen Saturation 80.2 %; VBG PCO2 35.1 MMHG (41-51); VBG PH 7.624; VBG PO2 36.2 MMHG (17-40)
[2020-08-07 09:24] LABS: Bacteria,Urine Occasional /HPF (Few); Bilirubin,Urine Negative (Negative); Blood, Urine Negative (Negative); Glucose,Urine (UA) Negative (Negative); Ketones,Urine Negative (Negative); Mucus,Urine Occasional /LPF (Occasional); Nitrite,Urine Negative (Negative); Protein,Urine Negative; RBC,Urine 2 /HPF (0-4); Squamous Epithelial Cell,Urine Occasional /HPF (0-10); Urine Appearance CLEAR (Clear); Urine Color Yellow (Yellow); Urine Specific Gravity 1.009 (1.001-1.035); Urine Urobilinogen < 2.0 EU/DL (0.2-1.0); WBC,Urine <1 /HPF (0-6)
[2020-08-07 09:36] LABS: Hematocrit Heart Surgery 18.4 PERCENT (37-47); PCO2 Patient Temp Venous 34.9 MM HG; PH Patient Temp Venous 7.608; PO2 Patient Temp Venous 30.1 MM HG; Potassium Heart/CVR 3.4 MMOL/L (3.5-5.1); VBG Base Excess 12.7 MEQ/L (0-4); VBG HCO3 36.2 MEQ/L (24-28); VBG Oxygen Saturation 78.6 %; VBG PCO2 40.4 MMHG (41-51); VBG PH 7.561; VBG PO2 37.1 MMHG (17-40)
[2020-08-07 09:41] LABS: Hemoglobin Heart Surgery 5.8 G/DL (12.0-16.0)
[2020-08-07 10:04] LABS: Hematocrit Heart Surgery 24.6 PERCENT (37-47); Hemoglobin Heart Surgery 7.9 G/DL (12.0-16.0); PCO2 Patient Temp Venous 31.8 MM HG; Potassium Heart/CVR 4.1 MMOL/L (3.5-5.1); VBG Base Excess 11.6 MEQ/L (0-4); VBG HCO3 35.1 MEQ/L (24-28); VBG Oxygen Saturation 78.6 %; VBG PCO2 36.8 MMHG (41-51); VBG PH 7.581; VBG PO2 34.7 MMHG (17-40)
[2020-08-07 10:05] LABS: PH Patient Temp Venous 7.629
[2020-08-07] MEDS: DOCUSATE SODIUM 100 MG CAPSULE PO SCH (10:21)
[2020-08-07] MEDS: ASPIRIN EC 81 MG TABLET PO SCH (10:21)
[2020-08-07] MEDS: PANTOPRAZOLE 40 MG VIAL IV SCH (10:22)
[2020-08-07] MEDS: CHLORHEXIDINE 0.12% ORAL RINSE 60 ML BOTTLE SWISH/SPIT SCH ×2 (10:22→22:02)
[2020-08-07] MEDS: FUROSEMIDE 20 MG TABLET PO SCH (10:22)
[2020-08-07] MEDS: CHOLECALCIFEROL 1,000 UNIT TABLET PO SCH (10:22)
[2020-08-07] MEDS: ATORVASTATIN 40 MG TABLET PO SCH (10:22)
[2020-08-07] MEDS: DIGOXIN 0.125 MG TABLET PO SCH (10:22)
[2020-08-07] MEDS: POLYETHYLENE GLYCOL POWDER 17 GM PACK PO SCH (10:22)
[2020-08-07] MEDS ORDERED: DEXTROSE 5% KCL 20 MEQ 20 MEQ/1,000 ML BAG IV ONE (10:48)
[2020-08-07] MEDS ORDERED: MANNITOL 100 GM/500 ML BAG IV ONE (10:48)
[2020-08-07] MEDS ORDERED: LIDOCAINE 2% 5 ML VIAL ONE (10:48)
[2020-08-07 10:49] LABS: ABG Base Excess 11.9 MMOL/L (-2.5-2.5); ABG HCO3 35.7 MMOL/L (20-26); ABG PCO2 33.1 MM HG (35-48); ABG TCO2 31.2 MMOL/L (23-27); Glucose Heart Surgery 203 MG/DL (74-106); Hematocrit Heart Surgery 28.5 PERCENT (37-47); Hemoglobin Heart Surgery 9.2 G/DL (12.0-16.0); Ionized Calcium Arterial 1.21 MMOL/L (1.21-1.46); PCO2 Patient Temp Arterial 33.1 MMHG; Patient Temperature 37 CELCIUS; Potassium Heart/CVR 3.3 MMOL/L (3.5-5.1); Sodium Heart/CVR 135 MMOL/L (135-145)
[2020-08-07] MEDS ORDERED: HEPARIN 10,000 UNIT/10 ML VIAL ONE (10:49)
[2020-08-07] MEDS ORDERED: MAGNESIUM SULFATE 5 GM/10 ML VIAL IV ONE (10:49)
[2020-08-07] MEDS ORDERED: FUROSEMIDE 20 MG/2 ML VIAL ONE (10:49)
[2020-08-07] MEDS ORDERED: methylPREDNISolone SOD SUC 1,000 MG/8 ML VIAL ONE (10:49)
[2020-08-07] MEDS ORDERED: ALBUMIN 25% 25 GM/100 ML VIAL IV ONE (10:49)
[2020-08-07] MEDS ORDERED: PROTAMINE SULFATE 250 MG/25 ML VIAL IV ONE (10:49)
[2020-08-07 10:52] LABS: PH Patient Temp Arterial 7.621
[2020-08-07] MEDS ORDERED: THROMBIN TOPICAL (RECOMBINANT) 5,000 UNIT VIAL TOP ONE (10:52)
[2020-08-07 10:55] LABS: ABG PH 7.621 (7.35-7.45)
[2020-08-07] MEDS ORDERED: NITROPRUSSIDE 100 MG in DEXTROSE 5% 250 ML IV PRN (11:26)
[2020-08-07] MEDS ORDERED: PHENYLEPHRINE DRIP 40 MG/250 ML PREMIX IV PRN (11:26)
[2020-08-07] MEDS ORDERED: MIDAZOLAM 10 MG/2 ML VIAL IV PRN (11:26)
[2020-08-07] MEDS ORDERED: CHLORHEXIDINE 4% SOLN 118 ML BOTTLE TOP PRN (11:26)
[2020-08-07] MEDS ORDERED: MAGNESIUM SULF RIDER 4 GM in PREMIX 1 EACH IV PRN (11:26)
[2020-08-07] MEDS ORDERED: INSULIN REGULAR 100 UNIT/ML IV PRN (11:26)
[2020-08-07] MEDS ORDERED: ACETAMINOPHEN 650 MG SUPP RECTAL PRN (11:26)
[2020-08-07] MEDS ORDERED: MORPHINE 10 MG/1 ML VIAL IV PRN (11:26)
[2020-08-07] MEDS ORDERED: VECURONIUM 10 MG VIAL IV PRN ×2 (11:26)
[2020-08-07] MEDS ORDERED: MAGNESIUM SULF RIDER 2 GM in PREMIX 1 EACH IV PRN (11:26)
[2020-08-07] MEDS ORDERED: INSULIN REGULAR 100 UNIT/ML IV ONE (11:26)
[2020-08-07] MEDS ORDERED: ONDANSETRON 4 MG/2 ML VIAL IV PRN (11:26)
[2020-08-07] MEDS ORDERED: DEXTROSE 50% 25 GM/50 ML VIAL IV PRN ×2 (11:26)
[2020-08-07] MEDS ORDERED: CALCIUM CHLORIDE 1,000 MG/10 ML VIAL IV ONE (11:52)
[2020-08-07] MEDS ORDERED: SEVOFLURANE 1 UNIT/15 MINUTE INH ONE (11:53)
[2020-08-07] MEDS ORDERED: MIDAZOLAM 10 MG/2 ML VIAL ONE (11:53)
[2020-08-07] MEDS ORDERED: HEPARIN/NACL 0.9% 2 UNITS/ML 500 ML IV ONE (11:53)
[2020-08-07] MEDS ORDERED: AMIODARONE 150 MG/3 ML VIAL ONE (11:53)
[2020-08-07] MEDS ORDERED: SUFentanil 250 MCG/5 ML AMP ONE (11:53)
[2020-08-07] MEDS ORDERED: ESMOLOL 100 MG/10 ML VIAL IV ONE (11:54)
[2020-08-07] MEDS ORDERED: SODIUM CHLORIDE 0.9% 1,000 ML IV ONE (11:54)
[2020-08-07] MEDS ORDERED: LACTATED RINGERS 1,000 ML IV ONE ×2 (11:54→14:00)
[2020-08-07] MEDS ORDERED: NITROGLYCERIN DRIP 50 MG/250 ML BOTTLE IV ONE ×2 (11:54→13:49)
[2020-08-07] MEDS ORDERED: SODIUM CHLORIDE 0.9% 500 ML IV ONE (11:54)
[2020-08-07] MEDS ORDERED: PHENYLEPHRINE 10 MG/1 ML VIAL IV ONE (11:54)
[2020-08-07] MEDS ORDERED: AMINOCAPROIC ACID 5,000 MG/20 ML VIAL ONE (11:54)
[2020-08-07] MEDS ORDERED: VECURONIUM 10 MG VIAL IV ONE (11:54)
[2020-08-07] MEDS: SODIUM CHLORIDE 0.45% 1,000 ML IV SCH ×2 (12:00)
[2020-08-07] MEDS ORDERED: AMIODARONE INJ 450 MG in DEXTROSE 5% 241 ML IV SCH (12:00)
[2020-08-07 12:48] LABS: ABG Base Excess 10.3 MMOL/L (-2.5-2.5); ABG HCO3 34.1 MMOL/L (20-26); ABG TCO2 27.6 MMOL/L (23-27); Glucose Heart Surgery 203 MG/DL (74-106); Hematocrit Heart Surgery 35.2 PERCENT (37-47); Hemoglobin Heart Surgery 11.4 G/DL (12.0-16.0); Potassium Heart/CVR 4.4 MMOL/L (3.5-5.1)
[2020-08-07 12:51] LABS: Basophils # 0.1 10*3/uL (0.0-0.2); Basophils % 0.3 % (0.0-0.8); Eosinophils # 0.1 10*3/uL (0.0-0.87); Eosinophils % 0.3 % (0.00-10.9); Hematocrit 27.4 VOL% (35.7-47.0); Hemoglobin 8.9 GM/DL (12.0-16.0); Immature Granulocytes % 4.7 %; Immature Granulocytes Absolute 1.11 #; Lymphocytes # 1.3 10*3/uL (1.4-4.0); Lymphocytes % 5.7 % (21.3-54.2); Mean Corpuscular HGB Conc 32.5 GM/DL (32-36); Mean Corpuscular Volume 86.7 FL (87-102); Mean Platelet Volume 9.2 FL (9.6-12.0); Monocytes % 5.6 % (1.7-12.7); Neutrophils % 83.4 % (38.7-73.9); Platelet Count 243 T/CUMM (130-400); Red Blood Count 3.16 MC/CUMM (3.8-5.5); Red Cell Distribution Width 15.1 % (9.3-17.3); White Blood Count 23.6 T/CUMM (4-12)
[2020-08-07 12:51] LABS: ABG PH 7.654 (7.35-7.45)
[2020-08-07 13:00] LABS: INR 1.3; PT Patient Result 13.5 SECS (9.8-11.9); Partial Thromboplastin Time 28.2 SECS (23.9-33.8)
[2020-08-07] MEDS: LACTATED RINGERS 250 ML IV PRN ×4 (13:00→16:30)
[2020-08-07 13:09] LABS: Albumin 2.6 G/DL (3.4-5.0); Bilirubin,Total 1.5 MG/DL (0.2-1.0); Calcium 10.8 MG/DL (8.5-10.1); Osmolality,Calculated 279.5 MOS/KG (273-304)
[2020-08-07 13:10] LABS: CKMB % 13.4 %
[2020-08-07 13:12] LABS: Troponin I 5.55 NG/ML (0.00-0.045)
[2020-08-07] MEDS: ALBUMIN 5% 12.5 GM in PREMIX 1 EACH IV PRN ×4 (13:15→17:52)
[2020-08-07] MEDS: INSULIN REGULAR DRIP 100 ML IV SCH (13:20)
[2020-08-07 13:25] LABS: Eosinophils 1 % (0-10); Lymphocytes 3 % (20-55); Segmented Neutrophils 93 % (50-85); Total Cells Counted 100
[2020-08-07 13:36] LABS: Hematocrit Heart Surgery 24.4 PERCENT (37-47); Hemoglobin Heart Surgery 7.8 G/DL (12.0-16.0); PCO2 Patient Temp Venous 43.3 MM HG; PH Patient Temp Venous 7.461; PO2 Patient Temp Venous 22.4 MM HG; Potassium Heart/CVR 3.1 MMOL/L (3.5-5.1); VBG Base Excess 6.4 MEQ/L (0-4); VBG HCO3 29.4 MEQ/L (24-28); VBG Oxygen Saturation 37.6 %; VBG PCO2 43.3 MMHG (41-51); VBG PH 7.461; VBG PO2 22.4 MMHG (17-40)
[2020-08-07] MEDS ORDERED: DOBUTamine 500 MG/250 ML PREMIX IV PRN (13:47)
[2020-08-07] MEDS ORDERED: DOBUTamine 500 MG/250 ML PREMIX IV ONE (13:49)
[2020-08-07] MEDS: NITROGLYCERIN DRIP 50 MG/250 ML BOTTLE IV PRN (14:00)
[2020-08-07 14:42] LABS: ABG HCO3 30.9 MMOL/L (20-26); ABG Oxygen Saturation 99.5 % (95-100); ABG PCO2 40.9 MM HG (35-48); ABG PH 7.488 (7.35-7.45); ABG TCO2 28.9 MMOL/L (23-27); Glucose Heart Surgery 159 MG/DL (74-106); Potassium Heart/CVR 3.2 MMOL/L (3.5-5.1)
[2020-08-07] MEDS: CALCIUM CHLORIDE 1,000 MG/10 ML SYRINGE IV PRN ×4 (15:00→19:31)
[2020-08-07] MEDS: POTASSIUM CHLORIDE RIDER 20 MEQ in PREMIX 1 EACH IV PRN ×2 (15:15→23:18)
[2020-08-07 15:48] LABS: Hematocrit Heart Surgery 33.9 PERCENT (37-47); PCO2 Patient Temp Venous 59.8 MM HG; PH Patient Temp Venous 7.332; PO2 Patient Temp Venous 32.8 MM HG; Potassium Heart/CVR 4.9 MMOL/L (3.5-5.1); VBG Base Excess 4.2 MEQ/L (0-4); VBG HCO3 27.5 MEQ/L (24-28); VBG Oxygen Saturation 60.4 %; VBG PCO2 59.8 MMHG (41-51); VBG PH 7.332; VBG PO2 32.8 MMHG (17-40)
[2020-08-07] MEDS: MIDAZOLAM 2 MG/2 ML VIAL IV PRN ×3 (17:20→22:02)
[2020-08-07 17:24] LABS: ABG Base Excess 1.4 MMOL/L (-2.5-2.5); ABG HCO3 25.7 MMOL/L (20-26); ABG PCO2 49.3 MM HG (35-48); ABG PH 7.355 (7.35-7.45); ABG TCO2 25.3 MMOL/L (23-27); Glucose Heart Surgery 146 MG/DL (74-106); Hematocrit Heart Surgery 29.4 PERCENT (37-47); Hemoglobin Heart Surgery 9.5 G/DL (12.0-16.0); Potassium Heart/CVR 3.8 MMOL/L (3.5-5.1)
[2020-08-07 18:05] LABS: ABG Base Excess -0.8 MMOL/L (-2.5-2.5); ABG HCO3 23.8 MMOL/L (20-26); ABG Oxygen Saturation 98.4 % (95-100); ABG PCO2 47.5 MM HG (35-48); ABG PH 7.334 (7.35-7.45); ABG TCO2 23.5 MMOL/L (23-27); Glucose Heart Surgery 133 MG/DL (74-106); Hematocrit Heart Surgery 27.1 PERCENT (37-47); Hemoglobin Heart Surgery 8.7 G/DL (12.0-16.0); Potassium Heart/CVR 3.8 MMOL/L (3.5-5.1)
[2020-08-07 18:43] LABS: Hemoglobin Heart Surgery 8.7 G/DL (12.0-16.0); PCO2 Patient Temp Venous 57.6 MM HG; PH Patient Temp Venous 7.278; PO2 Patient Temp Venous 34.4 MM HG; Potassium Heart/CVR 3.6 MMOL/L (3.5-5.1); VBG Base Excess -0.6 MEQ/L (0-4); VBG HCO3 23.3 MEQ/L (24-28); VBG Oxygen Saturation 51.2 %; VBG PCO2 57.6 MMHG (41-51); VBG PH 7.278; VBG PO2 34.4 MMHG (17-40)
[2020-08-07 19:00] LABS: CKMB % 14.6 %
[2020-08-07 19:03] LABS: Troponin I 3.58 NG/ML (0.00-0.045)
[2020-08-07] MEDS ORDERED: AMIODARONE 450 MG/9 ML VIAL IV ONE (19:15)
[2020-08-07] MEDS: AMIODARONE INJ 450 MG in DEXTROSE 5% 241 ML IV SCH (19:20)
[2020-08-07] MEDS ORDERED: EPINEPHrine 1 MG/ML VIAL ONE (19:22)
[2020-08-07 19:52] LABS: ABG Base Excess -2.5 MMOL/L (-2.5-2.5); ABG HCO3 22.3 MMOL/L (20-26); ABG PCO2 32.3 MM HG (35-48); ABG PH 7.424 (7.35-7.45); Glucose Heart Surgery 148 MG/DL (74-106); Hemoglobin Heart Surgery 10.7 G/DL (12.0-16.0); Potassium Heart/CVR 3.9 MMOL/L (3.5-5.1)
[2020-08-07] MEDS ORDERED: FUROSEMIDE 40 MG/4 ML VIAL IV ONE (20:04)
[2020-08-07 20:24] LABS: Hematocrit Heart Surgery 34.4 PERCENT (37-47); Hemoglobin Heart Surgery 11.1 G/DL (12.0-16.0); PCO2 Patient Temp Venous 37.3 MM HG; PH Patient Temp Venous 7.392; Potassium Heart/CVR 3.5 MMOL/L (3.5-5.1); VBG Base Excess -1.8 MEQ/L (0-4); VBG HCO3 22.6 MEQ/L (24-28); VBG Oxygen Saturation 82.9 %; VBG PCO2 37.3 MMHG (41-51); VBG PH 7.392
[2020-08-07] MEDS: CEFUROXIME INJ 1,500 MG in SYRINGE 1 EACH IV SCH (20:37)
[2020-08-07 23:05] LABS: ABG Base Excess -1.3 MMOL/L (-2.5-2.5); ABG HCO3 23.4 MMOL/L (20-26); ABG Oxygen Saturation 99.3 % (95-100); ABG PCO2 30.3 MM HG (35-48); ABG PH 7.463 (7.35-7.45); ABG TCO2 19.5 MMOL/L (23-27); Glucose Heart Surgery 160 MG/DL (74-106); Hematocrit Heart Surgery 32.1 PERCENT (37-47); Hemoglobin Heart Surgery 10.4 G/DL (12.0-16.0)
[2020-08-08] MEDS: POTASSIUM CHLORIDE RIDER 20 MEQ in PREMIX 1 EACH IV PRN (00:40)
[2020-08-08 00:55] LABS: ABG Base Excess -0.5 MMOL/L (-2.5-2.5); ABG Oxygen Saturation 98.8 % (95-100); ABG PCO2 37.8 MM HG (35-48); ABG PH 7.409 (7.35-7.45); ABG TCO2 21.7 MMOL/L (23-27); Glucose Heart Surgery 141 MG/DL (74-106); Hematocrit Heart Surgery 31.1 PERCENT (37-47)
[2020-08-08] MEDS ORDERED: HALOPERIDOL 5 MG/ML AMP IM ONE (01:18)
[2020-08-08] MEDS ORDERED: HALOPERIDOL 5 MG/ML AMP IV ONE (01:30)
[2020-08-08 04:32] LABS: ABG Base Excess 1.8 MMOL/L (-2.5-2.5); ABG HCO3 25.9 MMOL/L (20-26); ABG PCO2 38.9 MM HG (35-48); ABG PH 7.442 (7.35-7.45); ABG PO2 83.7 MM HG (80-95); ABG TCO2 27.1 MMOL/L (23-27); Glucose Heart Surgery 132 MG/DL (74-106); Hemoglobin Heart Surgery 10.3 G/DL (12.0-16.0); Potassium Heart/CVR 3.9 MMOL/L (3.5-5.1)
[2020-08-08 05:04] LABS: Albumin 3.4 G/DL (3.4-5.0); Bilirubin,Direct 0.38 MG/DL (0.0-0.20); Bilirubin,Total 0.9 MG/DL (0.2-1.0); Calcium 9.4 MG/DL (8.5-10.1); Osmolality,Calculated 281.3 MOS/KG (273-304); Total Protein 5.4 G/DL (6.4-8.3)
[2020-08-08 05:06] LABS: CKMB % 15.1 %
[2020-08-08 05:07] LABS: Basophils % 0.1 % (0.0-0.8); Hematocrit 29.3 VOL% (35.7-47.0); Hemoglobin 9.9 GM/DL (12.0-16.0); Immature Granulocytes % 1.5 %; Lymphocytes # 0.6 10*3/uL (1.4-4.0); Lymphocytes % 2.9 % (21.3-54.2); Mean Corpuscular HGB Conc 33.8 GM/DL (32-36); Mean Corpuscular Volume 86.7 FL (87-102); Mean Platelet Volume 10.2 FL (9.6-12.0); Monocytes % 5.7 % (1.7-12.7); Neutrophils % 89.8 % (38.7-73.9); Platelet Count 167 T/CUMM (130-400); Red Blood Count 3.38 MC/CUMM (3.8-5.5); Red Cell Distribution Width 14.7 % (9.3-17.3); White Blood Count 19.5 T/CUMM (4-12)
[2020-08-08] MEDS ORDERED: FUROSEMIDE 40 MG/4 ML VIAL IV ONE ×2 (05:09→17:06)
[2020-08-08 05:10] LABS: Hypochromasia Slight; Lymphocytes 3 % (20-55); Platelet Estimate Normal; Segmented Neutrophils 91 % (50-85); Total Cells Counted 100
[2020-08-08] MEDS: MORPHINE 4 MG/1 ML VIAL IV PRN ×2 (05:10→10:42)
[2020-08-08 05:11] LABS: Microcytosis Slight
[2020-08-08] MEDS: INSULIN REGULAR 100 UNIT/ML SUBCUT SCH ×5 (05:15→20:13)
[2020-08-08] MEDS: POTASSIUM CHLORIDE RIDER 10 MEQ in PREMIX 1 EACH IV PRN (05:17)
[2020-08-08 05:35] LABS: Troponin I 7.16 NG/ML (0.00-0.045)
[2020-08-08] MEDS: CEFUROXIME INJ 1,500 MG in SYRINGE 1 EACH IV SCH ×2 (08:24→20:11)
[2020-08-08] MEDS: CHLORHEXIDINE 0.12% ORAL RINSE 60 ML BOTTLE SWISH/SPIT SCH ×2 (08:33→21:10)
[2020-08-08] MEDS: INSULIN GLARGINE 100 UNIT/ML SUBCUT SCH (10:11)
[2020-08-08 10:31] LABS: ABG Base Excess 3.7 MMOL/L (-2.5-2.5); ABG HCO3 27.7 MMOL/L (20-26); ABG Oxygen Saturation 95.8 % (95-100); ABG PCO2 48.9 MM HG (35-48); ABG PH 7.388 (7.35-7.45); ABG TCO2 26.9 MMOL/L (23-27); Glucose Heart Surgery 174 MG/DL (74-106); Hematocrit Heart Surgery 30.2 PERCENT (37-47); Hemoglobin Heart Surgery 9.8 G/DL (12.0-16.0); Potassium Heart/CVR 3.9 MMOL/L (3.5-5.1)
[2020-08-08] MEDS: AMIODARONE INJ 450 MG in DEXTROSE 5% 241 ML IV SCH (10:41)
[2020-08-08 11:25] LABS: CKMB % 16.7 %
[2020-08-08 11:31] LABS: Troponin I 9.27 NG/ML (0.00-0.045)
[2020-08-08] MEDS: INSULIN REGULAR DRIP 100 ML IV SCH (12:14)
[2020-08-08] MEDS: SODIUM CHLORIDE 0.45% 1,000 ML IV SCH ×2 (12:14)
[2020-08-08 12:42] LABS: ABG HCO3 27.9 MMOL/L (20-26); ABG Oxygen Saturation 94.8 % (95-100); ABG PCO2 54.1 MM HG (35-48); ABG PH 7.359 (7.35-7.45); ABG PO2 77.8 MM HG (80-95); ABG TCO2 27.9 MMOL/L (23-27); Glucose Heart Surgery 160 MG/DL (74-106); Hematocrit Heart Surgery 30.2 PERCENT (37-47); Hemoglobin Heart Surgery 9.7 G/DL (12.0-16.0); Potassium Heart/CVR 3.9 MMOL/L (3.5-5.1)
[2020-08-08 13:55] LABS: ABG Base Excess 3.8 MMOL/L (-2.5-2.5); ABG HCO3 27.7 MMOL/L (20-26); ABG Oxygen Saturation 92.4 % (95-100); ABG PH 7.329 (7.35-7.45); ABG PO2 68.4 MM HG (80-95); ABG TCO2 28.6 MMOL/L (23-27); Glucose Heart Surgery 155 MG/DL (74-106); Hematocrit Heart Surgery 30.6 PERCENT (37-47); Hemoglobin Heart Surgery 9.9 G/DL (12.0-16.0)
[2020-08-08] MEDS: NITROGLYCERIN DRIP 50 MG/250 ML BOTTLE IV PRN (13:57)
[2020-08-08] MEDS ORDERED: KETOROLAC 30 MG/1 ML VIAL IV SCH (15:00)
[2020-08-08 16:59] LABS: ABG Base Excess 3.8 MMOL/L (-2.5-2.5); ABG HCO3 27.7 MMOL/L (20-26); ABG Oxygen Saturation 92.1 % (95-100); ABG PCO2 58.9 MM HG (35-48); ABG PH 7.329 (7.35-7.45); ABG PO2 68.9 MM HG (80-95); ABG TCO2 28.6 MMOL/L (23-27); Glucose Heart Surgery 154 MG/DL (74-106); Hematocrit Heart Surgery 29.6 PERCENT (37-47); Hemoglobin Heart Surgery 9.6 G/DL (12.0-16.0); Potassium Heart/CVR 4.1 MMOL/L (3.5-5.1)
[2020-08-08] MEDS ORDERED: MORPHINE 4 MG/1 ML VIAL IV PRN (19:13)
[2020-08-08 20:09] LABS: ABG Base Excess 4.1 MMOL/L (-2.5-2.5); ABG Oxygen Saturation 92.9 % (95-100); ABG PCO2 55.9 MM HG (35-48); ABG PH 7.349 (7.35-7.45); ABG PO2 68.5 MM HG (80-95); ABG TCO2 28.4 MMOL/L (23-27); Glucose Heart Surgery 157 MG/DL (74-106); Hematocrit Heart Surgery 28.7 PERCENT (37-47); Hemoglobin Heart Surgery 9.3 G/DL (12.0-16.0); Potassium Heart/CVR 4.1 MMOL/L (3.5-5.1)
[2020-08-08] MEDS ORDERED: ePHEDrine 50 MG/ML VIAL ONE (20:14)
[2020-08-09] MEDS: FUROSEMIDE 40 MG/4 ML VIAL IV SCH ×2 (00:35→06:05)
[2020-08-09] MEDS: INSULIN REGULAR 100 UNIT/ML SUBCUT SCH ×7 (00:37→23:50)
[2020-08-09] MEDS: AMIODARONE INJ 450 MG in DEXTROSE 5% 241 ML IV SCH (03:20)
[2020-08-09 04:13] LABS: ABG Base Excess 4.6 MMOL/L (-2.5-2.5); ABG HCO3 30.9 MMOL/L (20-26); ABG PCO2 52.5 MM HG (35-48); ABG PH 7.388 (7.35-7.45); ABG PO2 87.6 MM HG (80-95); ABG TCO2 32.5 MMOL/L (23-27)
[2020-08-09 04:26] LABS: Basophils # 0.1 10*3/uL (0.0-0.2); Basophils % 0.2 % (0.0-0.8); Hematocrit 28.9 VOL% (35.7-47.0); Hemoglobin 9.6 GM/DL (12.0-16.0); Immature Granulocytes % 1.3 %; Immature Granulocytes Absolute 0.46 #; Lymphocytes # 0.6 10*3/uL (1.4-4.0); Lymphocytes % 1.8 % (21.3-54.2); Mean Corpuscular HGB Conc 33.2 GM/DL (32-36); Mean Corpuscular Volume 89.2 FL (87-102); Mean Platelet Volume 10.2 FL (9.6-12.0); Monocytes % 5.2 % (1.7-12.7); Neutrophils % 91.5 % (38.7-73.9); Platelet Count 136 T/CUMM (130-400); Red Blood Count 3.24 MC/CUMM (3.8-5.5); Red Cell Distribution Width 15.4 % (9.3-17.3)
[2020-08-09 04:29] LABS: White Blood Count 35.6 T/CUMM (4-12)
[2020-08-09 04:44] LABS: Bilirubin,Direct 0.18 MG/DL (0.0-0.20); Bilirubin,Total 0.6 MG/DL (0.2-1.0); Calcium 8.8 MG/DL (8.5-10.1); Osmolality,Calculated 280.4 MOS/KG (273-304); Total Protein 5.7 G/DL (6.4-8.3)
[2020-08-09 04:51] LABS: Band Neutrophils 2 % (0-10); Lymphocytes 3 % (20-55); Segmented Neutrophils 91 % (50-85); Total Cells Counted 100
[2020-08-09 04:52] LABS: Hypochromasia 1+; Microcytosis 2+
[2020-08-09 04:53] LABS: Platelet Estimate Adequate
[2020-08-09] MEDS: ALBUMIN 5% 12.5 GM in PREMIX 1 EACH IV PRN (05:12)
[2020-08-09] MEDS: CEFEPIME 1,000 MG in SODIUM CHLORIDE 0.9% 100 ML IV SCH ×2 (06:05→17:47)
[2020-08-09] MEDS: AMIODARONE 200 MG TABLET PO SCH ×2 (09:06→21:09)
[2020-08-09] MEDS: CHLORHEXIDINE 0.12% ORAL RINSE 60 ML BOTTLE SWISH/SPIT SCH ×2 (09:06→21:10)
[2020-08-09] MEDS: ASPIRIN EC 325 MG TABLET PO SCH (09:06)
[2020-08-09] MEDS ORDERED: ALBUTEROL/IPRATROPIUM 3 ML NEB RESP TX ONE (11:12)
[2020-08-09] MEDS ORDERED: ALBUTEROL/IPRATROPIUM 3 ML NEB RESP TX PRN ×2 (11:13→13:00)
[2020-08-09] MEDS: ASCORBIC ACID 500 MG TABLET PO SCH ×2 (11:27→21:10)
[2020-08-09] MEDS: INSULIN GLARGINE 100 UNIT/ML SUBCUT SCH (11:29)
[2020-08-09] MEDS: SODIUM CHLORIDE 0.45% 1,000 ML IV SCH ×2 (17:35)
[2020-08-09] MEDS: ALBUTEROL/IPRATROPIUM 3 ML NEB RESP TX SCH (19:15)
[2020-08-09] MEDS ORDERED: FUROSEMIDE 40 MG/4 ML VIAL IV ONE (20:25)
[2020-08-09] MEDS: methylPREDNISolone SOD SUC 40 MG/1 ML VIAL IV SCH (21:05)
[2020-08-09] MEDS: diphenhydrAMINE CAP 25 MG CAPSULE PO PRN (21:05)
[2020-08-09] MEDS: SODIUM CHLOR 0.45% KCL 20 MEQ 20 MEQ/1,000 ML BAG IV SCH (21:09)
[2020-08-10] MEDS: ALBUTEROL/IPRATROPIUM 3 ML NEB RESP TX SCH ×4 (02:06→18:50)
[2020-08-10] MEDS: methylPREDNISolone SOD SUC 40 MG/1 ML VIAL IV SCH ×4 (02:42→20:26)
[2020-08-10] MEDS ORDERED: FUROSEMIDE 40 MG/4 ML VIAL IV ONE (03:00)
[2020-08-10 04:32] LABS: Basophils % 0.1 % (0.0-0.8); Hematocrit 28.1 VOL% (35.7-47.0); Hemoglobin 9.2 GM/DL (12.0-16.0); Immature Granulocytes % 0.9 %; Lymphocytes # 0.4 10*3/uL (1.4-4.0); Lymphocytes % 1.6 % (21.3-54.2); Mean Corpuscular HGB Conc 32.7 GM/DL (32-36); Mean Corpuscular Volume 89.8 FL (87-102); Mean Platelet Volume 10.1 FL (9.6-12.0); Monocytes % 1.5 % (1.7-12.7); Neutrophils % 95.9 % (38.7-73.9); Platelet Count 121 T/CUMM (130-400); Red Blood Count 3.13 MC/CUMM (3.8-5.5); Red Cell Distribution Width 15.1 % (9.3-17.3); White Blood Count 21.9 T/CUMM (4-12)
[2020-08-10 04:47] LABS: Albumin 2.6 G/DL (3.4-5.0); Bilirubin,Direct 0.21 MG/DL (0.0-0.20); Bilirubin,Total 0.5 MG/DL (0.2-1.0); Calcium 8.2 MG/DL (8.5-10.1); Osmolality,Calculated 281.4 MOS/KG (273-304); Total Protein 5.5 G/DL (6.4-8.3)
[2020-08-10 04:53] LABS: Hypochromasia 1+; Lymphocytes 2 % (20-55); Segmented Neutrophils 94 % (50-85); Total Cells Counted 100
[2020-08-10 04:54] LABS: Microcytosis 1+
[2020-08-10] MEDS: INSULIN REGULAR 100 UNIT/ML SUBCUT SCH ×6 (06:24→23:11)
[2020-08-10] MEDS: CEFEPIME 1,000 MG in SODIUM CHLORIDE 0.9% 100 ML IV SCH ×2 (06:26→18:08)
[2020-08-10] MEDS: INSULIN GLARGINE 100 UNIT/ML SUBCUT SCH (08:44)
[2020-08-10] MEDS: ASCORBIC ACID 500 MG TABLET PO SCH ×2 (08:44→20:26)
[2020-08-10] MEDS: AMIODARONE 200 MG TABLET PO SCH ×2 (08:44→20:26)
[2020-08-10] MEDS: CHLORHEXIDINE 0.12% ORAL RINSE 60 ML BOTTLE SWISH/SPIT SCH ×2 (08:44→20:26)
[2020-08-10] MEDS: ASPIRIN EC 325 MG TABLET PO SCH (08:44)
[2020-08-10] MEDS: POTASSIUM CHLORIDE RIDER 10 MEQ in PREMIX 1 EACH IV PRN (08:47)
[2020-08-10] MEDS: APIXABAN 5 MG TABLET PO SCH ×2 (09:34→20:26)
[2020-08-10] MEDS: FUROSEMIDE 40 MG/4 ML VIAL IV SCH (18:07)
[2020-08-10] MEDS: diphenhydrAMINE CAP 25 MG CAPSULE PO PRN (20:26)
[2020-08-11] MEDS: ALBUTEROL/IPRATROPIUM 3 ML NEB RESP TX SCH ×4 (00:48→18:58)
[2020-08-11] MEDS: methylPREDNISolone SOD SUC 40 MG/1 ML VIAL IV SCH ×4 (02:22→21:16)
[2020-08-11 03:31] LABS: Basophils % 0.1 % (0.0-0.8); Eosinophils % 0.1 % (0.00-10.9); Hematocrit 28.8 VOL% (35.7-47.0); Hemoglobin 9.6 GM/DL (12.0-16.0); Immature Granulocytes Absolute 0.17 #; Lymphocytes # 0.4 10*3/uL (1.4-4.0); Lymphocytes % 2.1 % (21.3-54.2); Mean Corpuscular HGB Conc 33.3 GM/DL (32-36); Mean Corpuscular Volume 88.6 FL (87-102); Mean Platelet Volume 9.7 FL (9.6-12.0); Monocytes % 2.4 % (1.7-12.7); Neutrophils % 94.3 % (38.7-73.9); Platelet Count 150 T/CUMM (130-400); Red Blood Count 3.25 MC/CUMM (3.8-5.5); Red Cell Distribution Width 14.8 % (9.3-17.3); White Blood Count 16.9 T/CUMM (4-12)
[2020-08-11 04:02] LABS: Lymphocytes 4 % (20-55); Segmented Neutrophils 94 % (50-85); Total Cells Counted 100
[2020-08-11 04:03] LABS: Calcium 8.4 MG/DL (8.5-10.1); Hypochromasia 1+; Osmolality,Calculated 278.8 MOS/KG (273-304); Platelet Estimate Adequate
[2020-08-11] MEDS: INSULIN REGULAR 100 UNIT/ML SUBCUT SCH ×5 (04:14→21:20)
[2020-08-11] MEDS: CEFEPIME 1,000 MG in SODIUM CHLORIDE 0.9% 100 ML IV SCH ×2 (04:40→17:54)
[2020-08-11] MEDS: POTASSIUM CHLORIDE RIDER 20 MEQ in PREMIX 1 EACH IV PRN ×2 (04:42→05:21)
[2020-08-11] MEDS: SODIUM CHLOR 0.45% KCL 20 MEQ 20 MEQ/1,000 ML BAG IV SCH (07:17)
[2020-08-11] MEDS ORDERED: GLUCAGON 1 MG VIAL IM PRN (09:50)
[2020-08-11] MEDS ORDERED: DEXTROSE 50% 25 GM/50 ML VIAL IV PRN (09:50)
[2020-08-11] MEDS ORDERED: MAGNESIUM HYDROXIDE SUSP 30 ML UDCUP PO PRN (09:50)
[2020-08-11] MEDS ORDERED: MAGNESIUM SULF RIDER 4 GM in PREMIX 1 EACH IV PRN (09:50)
[2020-08-11] MEDS ORDERED: ONDANSETRON 4 MG/2 ML VIAL IV PRN (09:50)
[2020-08-11] MEDS ORDERED: MAGNESIUM SULF RIDER 2 GM in PREMIX 1 EACH IV PRN (09:50)
[2020-08-11] MEDS ORDERED: ALUMINUM/MAGNES/SIMETH MAX STR 30 ML UDCUP PO PRN (09:50)
[2020-08-11] MEDS ORDERED: ACETAMINOPHEN 325 MG TABLET PO PRN (09:50)
[2020-08-11] MEDS: ASCORBIC ACID 500 MG TABLET PO SCH ×2 (09:54→21:16)
[2020-08-11] MEDS: ASPIRIN EC 81 MG TABLET PO SCH (09:54)
[2020-08-11] MEDS: APIXABAN 5 MG TABLET PO SCH ×2 (09:54→21:16)
[2020-08-11] MEDS: INSULIN GLARGINE 100 UNIT/ML SUBCUT SCH (09:54)
[2020-08-11] MEDS: AMIODARONE 200 MG TABLET PO SCH ×2 (09:55→10:42)
[2020-08-11] MEDS: FUROSEMIDE 40 MG/4 ML VIAL IV SCH (09:55)
[2020-08-11] MEDS: CHLORHEXIDINE 0.12% ORAL RINSE 60 ML BOTTLE SWISH/SPIT SCH ×2 (09:55→21:24)
[2020-08-11] MEDS ORDERED: FUROSEMIDE 40 MG TABLET PO ONE (10:16)
[2020-08-11] MEDS ORDERED: AMIODARONE INJ 150 MG in DEXTROSE 5% 100 ML IV ONE (15:11)
[2020-08-11] MEDS ORDERED: POTASSIUM CHLORIDE 20 MEQ TABLET PO ONE (15:16)
[2020-08-11] MEDS: AMIODARONE INJ 450 MG in DEXTROSE 5% 241 ML IV SCH (16:10)
[2020-08-11] MEDS ORDERED: AMIODARONE 200 MG TABLET PO SCH (21:00)
[2020-08-11] MEDS: ZALEPLON 5 MG CAPSULE PO PRN (21:27)
[2020-08-12] MEDS: ZALEPLON 5 MG CAPSULE PO PRN (00:30)
[2020-08-12] MEDS: ALBUTEROL/IPRATROPIUM 3 ML NEB RESP TX SCH ×4 (01:40→18:55)
[2020-08-12] MEDS: INSULIN REGULAR 100 UNIT/ML SUBCUT SCH ×5 (02:19→21:43)
[2020-08-12] MEDS: methylPREDNISolone SOD SUC 40 MG/1 ML VIAL IV SCH ×4 (02:33→21:21)
[2020-08-12 05:12] LABS: Basophils % 0.1 % (0.0-0.8); Hematocrit 29.3 VOL% (35.7-47.0); Hemoglobin 9.3 GM/DL (12.0-16.0); Immature Granulocytes Absolute 0.15 #; Lymphocytes # 0.3 10*3/uL (1.4-4.0); Mean Corpuscular HGB Conc 31.7 GM/DL (32-36); Mean Corpuscular Volume 91.8 FL (87-102); Monocytes % 3.7 % (1.7-12.7); Neutrophils % 93.2 % (38.7-73.9); Platelet Count 184 T/CUMM (130-400); Red Blood Count 3.19 MC/CUMM (3.8-5.5); Red Cell Distribution Width 14.9 % (9.3-17.3); White Blood Count 14.5 T/CUMM (4-12)
[2020-08-12 05:31] LABS: Alanine Aminotransferase 26 U/L (13-56); Albumin 2.6 G/DL (3.4-5.0); Alkaline Phosphatase 48 U/L (45-117); Aspartate Amino Transferase 19 U/L (0-37); Bilirubin,Indirect 0.5 MG/DL (0.0-1.0); Blood Urea Nitrogen 34 MG/DL (7-18); Calcium 8.5 MG/DL (8.5-10.1); Estimated Glom Filtration Rate 31 ML/MIN; Glucose 114 MG/DL (74-106); Osmolality,Calculated 283.7 MOS/KG (273-304); Total Protein 5.5 G/DL (6.4-8.3)
[2020-08-12 05:38] LABS: Hypochromasia 1+; Lymphocytes 2 % (20-55); Platelet Estimate Adequate; Segmented Neutrophils 94 % (50-85); Total Cells Counted 100
[2020-08-12 05:39] LABS: Microcytosis 1+
[2020-08-12] MEDS: CEFEPIME 1,000 MG in SODIUM CHLORIDE 0.9% 100 ML IV SCH ×2 (06:23→17:39)
[2020-08-12] MEDS: AMIODARONE INJ 450 MG in DEXTROSE 5% 241 ML IV SCH ×2 (06:24→12:33)
[2020-08-12] MEDS ORDERED: HYDROCORTISONE 2.5% RECTAL CREAM 30 GM TUBE TOP PRN (08:48)
[2020-08-12] MEDS ORDERED: AMIODARONE 200 MG TABLET PO SCH ×2 (09:00→12:44)
[2020-08-12] MEDS: POTASSIUM CHLORIDE 20 MEQ TABLET PO PRN ×2 (09:59→12:17)
[2020-08-12] MEDS: INSULIN GLARGINE 100 UNIT/ML SUBCUT SCH (10:02)
[2020-08-12] MEDS: ASPIRIN EC 81 MG TABLET PO SCH (10:05)
[2020-08-12] MEDS: APIXABAN 5 MG TABLET PO SCH (10:05)
[2020-08-12] MEDS: ASCORBIC ACID 500 MG TABLET PO SCH ×2 (10:05→21:20)
[2020-08-12] MEDS: DOCUSATE SODIUM 100 MG CAPSULE PO SCH (10:06)
[2020-08-12] MEDS: FERROUS SULFATE 325 MG TABLET PO SCH (10:06)
[2020-08-12] MEDS: PANTOPRAZOLE 40 MG TABLET PO SCH (10:06)
[2020-08-12] MEDS: FUROSEMIDE 40 MG TABLET PO SCH (10:06)
[2020-08-12] MEDS: CHLORHEXIDINE 0.12% ORAL RINSE 60 ML BOTTLE SWISH/SPIT SCH ×2 (12:02→23:18)
[2020-08-12] MEDS: oxyCODONE/ACETAMINOPHEN 5-325 MG TABLET PO PRN ×2 (12:22→21:24)
[2020-08-12] MEDS ORDERED: AMIODARONE 200 MG TABLET PO ONE (12:45)
[2020-08-12] MEDS: APIXABAN 2.5 MG TABLET PO SCH (21:20)
[2020-08-12] MEDS: ATORVASTATIN 40 MG TABLET PO SCH (21:20)
[2020-08-12] MEDS: AMIODARONE 200 MG TABLET PO SCH (21:21)
[2020-08-12] MEDS: diphenhydrAMINE CAP 50 MG CAPSULE PO PRN (21:21)
[2020-08-13] MEDS: ALBUTEROL/IPRATROPIUM 3 ML NEB RESP TX SCH ×4 (00:40→20:32)
[2020-08-13] MEDS: methylPREDNISolone SOD SUC 40 MG/1 ML VIAL IV SCH ×4 (02:19→23:13)
[2020-08-13] MEDS: CEFEPIME 1,000 MG in SODIUM CHLORIDE 0.9% 100 ML IV SCH ×2 (04:39→16:36)
[2020-08-13 06:29] LABS: Basophils % 0.1 % (0.0-0.8); Immature Granulocytes % 1.2 %; Immature Granulocytes Absolute 0.14 #; Lymphocytes # 0.3 10*3/uL (1.4-4.0); Lymphocytes % 2.4 % (21.3-54.2); Mean Corpuscular HGB Conc 32.1 GM/DL (32-36); Mean Corpuscular Volume 90.6 FL (87-102); Mean Platelet Volume 10.2 FL (9.6-12.0); Monocytes % 3.8 % (1.7-12.7); Neutrophils % 92.5 % (38.7-73.9); Platelet Count 201 T/CUMM (130-400); Red Blood Count 3.09 MC/CUMM (3.8-5.5); White Blood Count 11.8 T/CUMM (4-12)
[2020-08-13 06:55] LABS: Alanine Aminotransferase 25 U/L (13-56); Albumin 2.4 G/DL (3.4-5.0); Alkaline Phosphatase 48 U/L (45-117); Aspartate Amino Transferase 23 U/L (0-37); Bilirubin,Indirect 0.7 MG/DL (0.0-1.0); Blood Urea Nitrogen 42 MG/DL (7-18); Calcium 8.3 MG/DL (8.5-10.1); Estimated Glom Filtration Rate 36 ML/MIN; Glucose 98 MG/DL (74-106); Osmolality,Calculated 289.4 MOS/KG (273-304); Total Protein 5.3 G/DL (6.4-8.3)
[2020-08-13 06:56] LABS: Lymphocytes 3 % (20-55); Platelet Estimate Adequate; Segmented Neutrophils 94 % (50-85); Total Cells Counted 100
[2020-08-13 06:57] LABS: Hypochromasia 1+; Microcytosis 1+
[2020-08-13] MEDS ORDERED: POTASSIUM CHLORIDE RIDER 20 MEQ in PREMIX 1 EACH IV ONE (08:55)
[2020-08-13] MEDS: INSULIN REGULAR 100 UNIT/ML SUBCUT SCH ×4 (09:28→23:23)
[2020-08-13] MEDS: INSULIN GLARGINE 100 UNIT/ML SUBCUT SCH (09:29)
[2020-08-13] MEDS: POTASSIUM CHLORIDE 10 MEQ TABLET PO SCH ×2 (09:31→23:09)
[2020-08-13] MEDS: DOCUSATE SODIUM 100 MG CAPSULE PO SCH (09:31)
[2020-08-13] MEDS: ASCORBIC ACID 500 MG TABLET PO SCH ×2 (09:32→23:12)
[2020-08-13] MEDS: AMIODARONE 200 MG TABLET PO SCH ×2 (09:33→23:11)
[2020-08-13] MEDS: FERROUS SULFATE 325 MG TABLET PO SCH (09:34)
[2020-08-13] MEDS: PANTOPRAZOLE 40 MG TABLET PO SCH (09:34)
[2020-08-13] MEDS: ASPIRIN EC 81 MG TABLET PO SCH (09:34)
[2020-08-13] MEDS: FUROSEMIDE 40 MG TABLET PO SCH (09:34)
[2020-08-13] MEDS: APIXABAN 2.5 MG TABLET PO SCH ×2 (09:35→23:09)
[2020-08-13] MEDS: CHLORHEXIDINE 0.12% ORAL RINSE 60 ML BOTTLE SWISH/SPIT SCH ×2 (10:19→23:21)
[2020-08-13] MEDS: diphenhydrAMINE CAP 50 MG CAPSULE PO PRN (23:09)
[2020-08-13] MEDS: ATORVASTATIN 40 MG TABLET PO SCH (23:09)
[2020-08-13] MEDS: NEBIVOLOL 5 MG TABLET PO SCH (23:10)
[2020-08-14] MEDS: oxyCODONE/ACETAMINOPHEN 5-325 MG TABLET PO PRN ×2 (01:54→20:57)
[2020-08-14] MEDS: ALBUTEROL/IPRATROPIUM 3 ML NEB RESP TX SCH ×4 (02:35→19:12)
[2020-08-14] MEDS: methylPREDNISolone SOD SUC 40 MG/1 ML VIAL IV SCH (02:43)
[2020-08-14] MEDS: CEFEPIME 1,000 MG in SODIUM CHLORIDE 0.9% 100 ML IV SCH (05:08)
[2020-08-14 06:08] LABS: Basophils % 0.1 % (0.0-0.8); Hematocrit 25.9 VOL% (35.7-47.0); Hemoglobin 8.1 GM/DL (12.0-16.0); Immature Granulocytes % 1.3 %; Immature Granulocytes Absolute 0.12 #; Lymphocytes # 0.2 10*3/uL (1.4-4.0); Mean Corpuscular HGB Conc 31.3 GM/DL (32-36); Mean Corpuscular Volume 92.8 FL (87-102); Monocytes % 3.7 % (1.7-12.7); Neutrophils % 92.9 % (38.7-73.9); Platelet Count 168 T/CUMM (130-400); Red Blood Count 2.79 MC/CUMM (3.8-5.5); Red Cell Distribution Width 14.8 % (9.3-17.3); White Blood Count 9.4 T/CUMM (4-12)
[2020-08-14 06:23] LABS: Calcium 8.1 MG/DL (8.5-10.1); Osmolality,Calculated 289.4 MOS/KG (273-304)
[2020-08-14 06:42] LABS: Hypochromasia 1+; Lymphocytes 5 % (20-55); Segmented Neutrophils 92 % (50-85); Total Cells Counted 100
[2020-08-14 06:43] LABS: Microcytosis 1+; Platelet Estimate Adequate
[2020-08-14] MEDS: POTASSIUM CHLORIDE 20 MEQ TABLET PO PRN (09:21)
[2020-08-14] MEDS: ASCORBIC ACID 500 MG TABLET PO SCH (09:22)
[2020-08-14] MEDS: DOCUSATE SODIUM 100 MG CAPSULE PO SCH (09:22)
[2020-08-14] MEDS: FUROSEMIDE 40 MG TABLET PO SCH (09:22)
[2020-08-14] MEDS: AMIODARONE 200 MG TABLET PO SCH ×2 (09:22→20:53)
[2020-08-14] MEDS: predniSONE 10 MG TABLET PO SCH (09:22)
[2020-08-14] MEDS: APIXABAN 2.5 MG TABLET PO SCH (09:22)
[2020-08-14] MEDS: ASPIRIN EC 81 MG TABLET PO SCH (09:22)
[2020-08-14] MEDS: POTASSIUM CHLORIDE 10 MEQ TABLET PO SCH ×2 (09:22→20:53)
[2020-08-14] MEDS: PANTOPRAZOLE 40 MG TABLET PO SCH (09:23)
[2020-08-14] MEDS: CHLORHEXIDINE 0.12% ORAL RINSE 60 ML BOTTLE SWISH/SPIT SCH ×2 (09:23→20:51)
[2020-08-14] MEDS: FERROUS SULFATE 325 MG TABLET PO SCH (09:23)
[2020-08-14] MEDS: INSULIN GLARGINE 100 UNIT/ML SUBCUT SCH (09:24)
[2020-08-14] MEDS: INSULIN REGULAR 100 UNIT/ML SUBCUT SCH ×4 (09:27→21:00)
[2020-08-14] MEDS: NEBIVOLOL 5 MG TABLET PO SCH (20:54)
[2020-08-14] MEDS: ATORVASTATIN 40 MG TABLET PO SCH (20:56)
[2020-08-15] MEDS: APIXABAN 2.5 MG TABLET PO SCH ×3 (00:04→09:52)
[2020-08-15] MEDS: PIPERACILLIN/TAZOBACTAM 3,375 MG in SODIUM CHLORIDE 0.9% 100 ML IV SCH ×4 (00:08→22:00)
[2020-08-15] MEDS: ASCORBIC ACID 500 MG TABLET PO SCH ×3 (00:09→21:58)
[2020-08-15 06:11] LABS: Basophils % 0.2 % (0.0-0.8); Eosinophils % 0.2 % (0.00-10.9); Hematocrit 26.7 VOL% (35.7-47.0); Hemoglobin 8.3 GM/DL (12.0-16.0); Immature Granulocytes % 1.8 %; Immature Granulocytes Absolute 0.21 #; Lymphocytes # 0.8 10*3/uL (1.4-4.0); Lymphocytes % 6.4 % (21.3-54.2); Mean Corpuscular HGB Conc 31.1 GM/DL (32-36); Mean Platelet Volume 10.4 FL (9.6-12.0); Monocytes % 9.7 % (1.7-12.7); Neutrophils % 81.7 % (38.7-73.9); Platelet Count 161 T/CUMM (130-400); Red Blood Count 2.84 MC/CUMM (3.8-5.5); Red Cell Distribution Width 14.8 % (9.3-17.3); White Blood Count 11.9 T/CUMM (4-12)
[2020-08-15 06:30] LABS: Alanine Aminotransferase 24 U/L (13-56); Albumin 2.5 G/DL (3.4-5.0); Alkaline Phosphatase 43 U/L (45-117); Aspartate Amino Transferase 23 U/L (0-37); Bilirubin,Indirect 0.8 MG/DL (0.0-1.0); Blood Urea Nitrogen 38 MG/DL (7-18); Calcium 7.8 MG/DL (8.5-10.1); Estimated Glom Filtration Rate 40 ML/MIN; Glucose 75 MG/DL (74-106); Osmolality,Calculated 286.4 MOS/KG (273-304); Total Protein 4.9 G/DL (6.4-8.3); Troponin I 0.917 NG/ML (0.00-0.045)
[2020-08-15] MEDS: ALBUTEROL/IPRATROPIUM 3 ML NEB RESP TX SCH ×4 (07:15→19:15)
[2020-08-15] MEDS: INSULIN GLARGINE 100 UNIT/ML SUBCUT SCH (09:18)
[2020-08-15] MEDS: INSULIN REGULAR 100 UNIT/ML SUBCUT SCH (09:18)
[2020-08-15] MEDS: predniSONE 10 MG TABLET PO SCH (09:48)
[2020-08-15] MEDS: POTASSIUM CHLORIDE 10 MEQ TABLET PO SCH ×2 (09:48→21:58)
[2020-08-15] MEDS: PANTOPRAZOLE 40 MG TABLET PO SCH (09:48)
[2020-08-15] MEDS: FUROSEMIDE 40 MG TABLET PO SCH (09:49)
[2020-08-15] MEDS: ASPIRIN EC 81 MG TABLET PO SCH (09:49)
[2020-08-15] MEDS: CHLORHEXIDINE 0.12% ORAL RINSE 60 ML BOTTLE SWISH/SPIT SCH ×2 (09:49→22:02)
[2020-08-15] MEDS: DOCUSATE SODIUM 100 MG CAPSULE PO SCH (09:49)
[2020-08-15] MEDS: AMIODARONE 200 MG TABLET PO SCH ×2 (09:49→21:57)
[2020-08-15] MEDS: FERROUS SULFATE 325 MG TABLET PO SCH (09:49)
[2020-08-15] MEDS: TOLNAFTATE 1% CREAM 15 GM TUBE TOP SCH (09:50)
[2020-08-15] MEDS: oxyCODONE/ACETAMINOPHEN 5-325 MG TABLET PO PRN (21:56)
[2020-08-15] MEDS: ATORVASTATIN 40 MG TABLET PO SCH (21:57)
[2020-08-16] MEDS: TOLNAFTATE 1% CREAM 15 GM TUBE TOP SCH ×3 (00:06→20:41)
[2020-08-16] MEDS: NEBIVOLOL 5 MG TABLET PO SCH ×2 (00:06→20:43)
[2020-08-16] MEDS: ALBUTEROL/IPRATROPIUM 3 ML NEB RESP TX SCH ×4 (00:06→20:10)
[2020-08-16] MEDS: APIXABAN 2.5 MG TABLET PO SCH ×2 (00:09→15:13)
[2020-08-16 05:48] LABS: Basophils % 0.1 % (0.0-0.8); Eosinophils # 0.1 10*3/uL (0.0-0.87); Eosinophils % 0.5 % (0.00-10.9); Hematocrit 27.1 VOL% (35.7-47.0); Hemoglobin 8.6 GM/DL (12.0-16.0); Immature Granulocytes % 1.9 %; Immature Granulocytes Absolute 0.21 #; Lymphocytes # 0.7 10*3/uL (1.4-4.0); Lymphocytes % 6.2 % (21.3-54.2); Mean Corpuscular HGB Conc 31.7 GM/DL (32-36); Mean Corpuscular Volume 93.4 FL (87-102); Monocytes % 8.8 % (1.7-12.7); Neutrophils % 82.5 % (38.7-73.9); Platelet Count 161 T/CUMM (130-400); Red Cell Distribution Width 14.9 % (9.3-17.3); White Blood Count 11.3 T/CUMM (4-12)
[2020-08-16 06:12] LABS: Alanine Aminotransferase 32 U/L (13-56); Albumin 2.5 G/DL (3.4-5.0); Alkaline Phosphatase 47 U/L (45-117); Aspartate Amino Transferase 32 U/L (0-37); Bilirubin,Indirect 0.8 MG/DL (0.0-1.0); Blood Urea Nitrogen 36 MG/DL (7-18); Calcium 7.9 MG/DL (8.5-10.1); Estimated Glom Filtration Rate 36 ML/MIN; Glucose 84 MG/DL (74-106); Osmolality,Calculated 289.1 MOS/KG (273-304); Total Protein 5.3 G/DL (6.4-8.3)
[2020-08-16 06:13] LABS: Troponin I 0.742 NG/ML (0.00-0.045)
[2020-08-16] MEDS: PIPERACILLIN/TAZOBACTAM 3,375 MG in SODIUM CHLORIDE 0.9% 100 ML IV SCH ×3 (06:43→20:41)
[2020-08-16] MEDS ORDERED: POTASSIUM CHLORIDE 20 MEQ TABLET PO ONE (06:58)
[2020-08-16] MEDS: POTASSIUM CHLORIDE 10 MEQ TABLET PO SCH ×2 (10:07→20:43)
[2020-08-16] MEDS: ASCORBIC ACID 500 MG TABLET PO SCH ×2 (10:07→20:43)
[2020-08-16] MEDS: ASPIRIN EC 81 MG TABLET PO SCH (10:08)
[2020-08-16] MEDS: AMIODARONE 200 MG TABLET PO SCH ×2 (10:08→20:43)
[2020-08-16] MEDS: DOCUSATE SODIUM 100 MG CAPSULE PO SCH (10:08)
[2020-08-16] MEDS: CHLORHEXIDINE 0.12% ORAL RINSE 60 ML BOTTLE SWISH/SPIT SCH ×2 (10:08→20:44)
[2020-08-16] MEDS: predniSONE 10 MG TABLET PO SCH (10:08)
[2020-08-16] MEDS: PANTOPRAZOLE 40 MG TABLET PO SCH (10:08)
[2020-08-16] MEDS: FERROUS SULFATE 325 MG TABLET PO SCH (10:08)
[2020-08-16] MEDS: FUROSEMIDE 40 MG TABLET PO SCH (10:08)
[2020-08-16] MEDS: ATORVASTATIN 40 MG TABLET PO SCH (20:43)
[2020-08-16] MEDS: oxyCODONE/ACETAMINOPHEN 5-325 MG TABLET PO PRN (20:43)
[2020-08-17] MEDS: ALBUTEROL/IPRATROPIUM 3 ML NEB RESP TX SCH ×4 (00:50→19:39)
[2020-08-17] MEDS: PIPERACILLIN/TAZOBACTAM 3,375 MG in SODIUM CHLORIDE 0.9% 100 ML IV SCH (04:19)
[2020-08-17 06:45] LABS: Basophils % 0.1 % (0.0-0.8); Eosinophils # 0.1 10*3/uL (0.0-0.87); Eosinophils % 0.8 % (0.00-10.9); Hemoglobin 9.2 GM/DL (12.0-16.0); Immature Granulocytes % 2.6 %; Immature Granulocytes Absolute 0.38 #; Lymphocytes # 1.1 10*3/uL (1.4-4.0); Lymphocytes % 7.7 % (21.3-54.2); Mean Corpuscular HGB Conc 30.7 GM/DL (32-36); Mean Corpuscular Volume 95.5 FL (87-102); Mean Platelet Volume 10.4 FL (9.6-12.0); Monocytes % 7.9 % (1.7-12.7); Neutrophils % 80.9 % (38.7-73.9); Platelet Count 181 T/CUMM (130-400); Red Blood Count 3.14 MC/CUMM (3.8-5.5); Red Cell Distribution Width 15.2 % (9.3-17.3); White Blood Count 14.5 T/CUMM (4-12)
[2020-08-17 07:07] LABS: Calcium 8.3 MG/DL (8.5-10.1)
[2020-08-17] MEDS: POTASSIUM CHLORIDE 20 MEQ TABLET PO PRN (09:50)
[2020-08-17] MEDS: POTASSIUM CHLORIDE 10 MEQ TABLET PO SCH ×2 (09:50→21:53)
[2020-08-17] MEDS: AMIODARONE 200 MG TABLET PO SCH ×2 (09:51→21:54)
[2020-08-17] MEDS: ASCORBIC ACID 500 MG TABLET PO SCH ×2 (09:51→21:53)
[2020-08-17] MEDS: PANTOPRAZOLE 40 MG TABLET PO SCH (09:51)
[2020-08-17] MEDS: ASPIRIN EC 81 MG TABLET PO SCH (09:51)
[2020-08-17] MEDS: FERROUS SULFATE 325 MG TABLET PO SCH (09:51)
[2020-08-17] MEDS: DOCUSATE SODIUM 100 MG CAPSULE PO SCH (09:51)
[2020-08-17] MEDS: FUROSEMIDE 40 MG TABLET PO SCH (09:51)
[2020-08-17] MEDS: predniSONE 10 MG TABLET PO SCH (09:51)
[2020-08-17] MEDS: CHLORHEXIDINE 0.12% ORAL RINSE 60 ML BOTTLE SWISH/SPIT SCH ×2 (09:56→22:01)
[2020-08-17] MEDS: TOLNAFTATE 1% CREAM 15 GM TUBE TOP SCH ×2 (10:18→22:01)
[2020-08-17] MEDS: SULFAMETHOX/TRIMETHOPRIM 800-160 MG TABLET PO SCH ×2 (13:03→21:54)
[2020-08-17] MEDS: NEBIVOLOL 5 MG TABLET PO SCH (21:53)
[2020-08-17] MEDS: ATORVASTATIN 40 MG TABLET PO SCH (21:54)
[2020-08-17] MEDS: diphenhydrAMINE CAP 50 MG CAPSULE PO PRN (23:06)
[2020-08-18] MEDS: ALBUTEROL/IPRATROPIUM 3 ML NEB RESP TX SCH ×3 (01:26→13:33)
[2020-08-18 05:51] LABS: Basophils % 0.2 % (0.0-0.8); Eosinophils # 0.1 10*3/uL (0.0-0.87); Eosinophils % 0.6 % (0.00-10.9); Hematocrit 27.3 VOL% (35.7-47.0); Hemoglobin 8.4 GM/DL (12.0-16.0); Immature Granulocytes % 2.8 %; Immature Granulocytes Absolute 0.35 #; Lymphocytes # 0.9 10*3/uL (1.4-4.0); Mean Corpuscular HGB Conc 30.8 GM/DL (32-36); Mean Corpuscular Volume 95.5 FL (87-102); Monocytes % 8.4 % (1.7-12.7); Platelet Count 148 T/CUMM (130-400); Red Blood Count 2.86 MC/CUMM (3.8-5.5); Red Cell Distribution Width 15.3 % (9.3-17.3); White Blood Count 12.5 T/CUMM (4-12)
[2020-08-18 06:12] LABS: Calcium 8.3 MG/DL (8.5-10.1)
[2020-08-18 06:18] LABS: Osmolality,Calculated 289.1 MOS/KG (273-304)
[2020-08-18] MEDS: FERROUS SULFATE 325 MG TABLET PO SCH (09:40)
[2020-08-18] MEDS: AMIODARONE 200 MG TABLET PO SCH (09:40)
[2020-08-18] MEDS: FUROSEMIDE 40 MG TABLET PO SCH (09:40)
[2020-08-18] MEDS: predniSONE 10 MG TABLET PO SCH (09:42)
[2020-08-18] MEDS: SULFAMETHOX/TRIMETHOPRIM 800-160 MG TABLET PO SCH (09:42)
[2020-08-18] MEDS: DOCUSATE SODIUM 100 MG CAPSULE PO SCH (09:42)
[2020-08-18] MEDS: ASCORBIC ACID 500 MG TABLET PO SCH (09:42)
[2020-08-18] MEDS: POTASSIUM CHLORIDE 10 MEQ TABLET PO SCH (09:42)
[2020-08-18] MEDS: PANTOPRAZOLE 40 MG TABLET PO SCH (09:42)
[2020-08-18] MEDS: ASPIRIN EC 81 MG TABLET PO SCH (09:42)
[2020-08-18] MEDS: CHLORHEXIDINE 0.12% ORAL RINSE 60 ML BOTTLE SWISH/SPIT SCH (09:50)
[2020-08-18] MEDS: TOLNAFTATE 1% CREAM 15 GM TUBE TOP SCH (09:51)
[2020-08-18 14:07] VITALS: BP 115/63
== END 2020-08-18 14:18 | disposition home health service (06) | DRG 216 ==
LOC: N.ICU 20:45 → SUATTDRO 20:45 → N.ICU 23:26 → N.TELEN 07-28 06:30 → N.CVR 08-07 11:27 → N.ICU 08-08 18:32 → N.TELES 08-11 12:04
PROVIDERS: ADMIT Family Medicine
PROC: CABGMVR (ICD-10-PCS; 2020-08-07 06:45)